=== PATIENT | male | born 1935 | race Caucasian/White ===

== ENCOUNTER 2017-04-08 19:30 | Outpatient (CLI) | payer MEDICARE, BC | END 2017-04-08 19:31 | disposition home or self-care (01) | LOC: SLEEPLAB 19:30 | PROVIDERS: ATTEND Family Medicine | DX: G47.33 Obstructive sleep apnea (adult) (pediatric) (principal); G47.31 Primary central sleep apnea; E11.9 Type 2 diabetes mellitus without complications; I10 Essential (primary) hypertension; K21.9 Gastro-esophageal reflux disease without esophagitis; I25.10 Atherosclerotic heart disease of native coronary artery without angina pectoris | CPT/HCPCS: 95811 ==

== ENCOUNTER 2017-06-07 11:54 | Inpatient (IN) | payer MEDICARE, BC ==
[2017-06-07 13:04] LABS: #Basophils 0.1 thou/uL (0.0-0.2); #Eosinphils 0.2 thou/uL (0.0-0.7); #Lymphocytes 1.9 thou/uL (1.20-3.40); #Monocytes 0.7 thou/uL (0.11-0.59); #Neutrophils 5.8 thou/uL (1.40-6.50); %Basophils 1.2 % (0.0-1.0); %Eosinophils 2.1 % (0.0-10.0); %Monocytes 7.9 % (0.0-10.0); Hematocrit 35.1 % (42.0-52.0); Mean Platelet Volume 6.8 fL (7.4-10.4); Red Blood Cell (RBC) Count 4.02 mill/uL (4.70-6.10); White Blood Cell (WBC) Count 8.6 thou/uL (4.8-10.8)
[2017-06-07 13:10] LABS: PTT 29.9 SEC (22.9-36.1); Prothrombin Time 13.9 SEC (12.0-14.7)
[2017-06-07 13:18] LABS: ALT (SGPT) 19 U/L (8-55); AST (SGOT) 23 U/L (5-34); Alkaline Phosphatase 83 U/L (40-150); Anion Gap 12 mmol/L (10-20); BUN (Urea Nitrogen) 16 mg/dL (8.4-25.7); Bilirubin, Total 0.5 mg/dL (0.2-1.2); CK (CPK) 65 U/L (30-200); Calc. Creatinine Clearance 0 mL/min (70-130); Calcium 9.6 mg/dL (7.8-10.44); Carbon Dioxide 26 mmol/L (23-31); Chloride 99 mmol/L (98-107); Estimated GFR-MDRD 76; Globulin 3.2 g/dL (2.4-3.5)
[2017-06-07 13:20] LABS: Troponin I Less than 0.010 ng/mL (< 0.028)
--- NOTE | 2017-06-07 13:26 | CT ---
NONCONTRAST HEAD CT: History: Altered mental status. Comparison: 02-12-17 Technique: Noncontrast head CT is performed from skull base to skull vertex. FINDINGS: No parenchymal hemorrhage. No extraaxial hematoma. No midline shift. Basilar cisterns are patent. Age appropriate atrophy. Cortical recinos white matter differentiation is preserved. Ventricles and sulci a re patent and symmetric. Stable hypodensity in the left subinsular white matter. Stable atherosclerosis. Calvarium is intact. Adequate aeration of the sinuses and mastoid air cells. IMPRESSION: No acute intracranial process. POS: [facility]
--- NOTE | 2017-06-07 13:38 | RAD ---
EXAM: CHEST 1 VIEW: HISTORY: Altered mental status. COMPARISON: 03/05/17. FINDINGS: Portable upright chest demonstrates a normal cardiac silhouette. Pulmonary vessels and hilum are nor mal. Costophrenic angles are clear. Sternotomy wires are noted. No consolidation or mass. No pneu mothorax or osseous abnormalities. IMPRESSION: No acute cardiopulmonary process. POS: [facility]
--- NOTE | 2017-06-07 13:43 | ULT ---
EXAM: LEFT LOWER EXTREMITY VENOUS ULTRASOUND WITH DOPPLER: COMPARISON: 04/16/16. HISTORY: Left leg swelling. COMPARISON: None. TECHNIQUE: North scale, color flow, Doppler imaging, and spectral waveform analysis of the left lower extremity v enous system. FINDINGS: There is compressibility, presence of flow, and augmentation of the common femoral vein, femoral vein , and popliteal vein. There is flow in the greater saphenous vein, profunda vein, and posterior tibi al vein. IMPRESSION: No evidence of thrombus in the left lower extremity deep venous system. POS: [facility]
[2017-06-07 14:55] LABS: Bilirubin Negative (Negative); Blood, Urine Trace (Negative); Glucose, Urine (Dipstick) Negative (Negative); Ketone, Urine Negative (Negative); Nitrite Negative (Negative); Protein, Urine (Dipstick) Negative (Neg-Trace); Urobilinogen 0.2 mg/dL (0.2-1.0)
[2017-06-07 15:47] LABS: Bacteria/HPF None Seen HPF (None Seen); RBC/HPF 0-3 HPF (0-3); Squamous Epithelial None Seen HPF (0-3); WBC/HPF None Seen HPF (0-3)
[2017-06-07 17:04] VITALS: BMI 27.3
[2017-06-07] MEDS ORDERED: Dextrose 5% in Water 1,000 ML IV PRN (17:53)
[2017-06-07] MEDS ORDERED: Dextrose 50% Abboject 50 ML SYRINGE SLOW IVP PRN (17:53)
[2017-06-07] MEDS ORDERED: Labetalol HCl 100 MG/20 ML VIAL SLOW IVP PRN (17:54)
[2017-06-07] MEDS ORDERED: Acetaminophen 325 MG TAB PO PRN (17:56)
[2017-06-07] MEDS ORDERED: Lorazepam 2 MG/ML VIAL ONE (20:34)
[2017-06-07] MEDS ORDERED: Lorazepam 2 MG/ML VIAL SLOW IVP SCH (20:35)
[2017-06-07] MEDS ORDERED: Lorazepam 2 MG/ML VIAL SLOW IVP PRN (20:57)
[2017-06-07] MEDS ORDERED: levETIRAcetam In NaCl (Iso-Os) 1,000 MG in Premix Bag 1 BAG IVPB SCH ×2 (21:00)
[2017-06-07] MEDS ORDERED: Metoprolol Tartrate 25 MG TAB PO SCH (21:00)
[2017-06-07] MEDS ORDERED: Aspirin 325 mg Enteric Coated Tablet PO SCH (21:00)
--- NOTE | 2017-06-07 21:11 | PDOC.EVN ---
Event Note - Event Note Event Note: Called by nursing for AMS, hypoxia and seizure activity. No known prior seizure disorder. No new meds. Admitted for acute confusion, AMS. Reviewed all hx, labs, rads PE: HR 100, RR 16, T-97.8, O2 sat 100% NRB, BP -pending Gen: somnolent HEENT: PERRLA, EOMI, no icterus CHEST: LCTAB CV: S1, S2 tachycardic ABD: soft, NT, ND, BS + EXT: no c/c/e NEURO: somnolent, post-ictal Gluc: 180's EKG: sinus tachycardia in 110's, no acute changes CT Brain - no acute process A/P: 1. Acute Seizure - etiology unclear, Ativan 2mg IV now then q4h prn, Keppra 1000mg IV q12h first dose now, repeat CT brain since admit, transfer to CCU, consult Neurology service, UDS, Mg++, Lactate, Troponin, PO3, TSH 2. Acute Encephalopathy/Delirium - secondary to #1 3. CAD - chronic, stable 4. Chronic Hyponatremia - stable 5. Code Status - DNR confirmed with family at bedside 6. Transfer to CCU Total critical care time: 35min
--- NOTE | 2017-06-07 21:16 | CT ---
CT HEAD NONCONTRAST 06/07/17 HISTORY: Altered mental status. COMPARISON: Earlier exam on the same date. FINDINGS: There is no evidence of acute intracranial hemorrhage or infarct. Chronic ischemic small vessel disea se is again demonstrated. There is no mass effect or shift of midline structures. Calcifications pres ent within the arterial structures. Visualized paranasal sinuses remain well aerated. IMPRESSION: Chronic type findings are stable. No acute intracranial abnormalities are demonstrated on noncontrast CT head. POS: [facility]
[2017-06-07 21:18] LABS: Magnesium 1.6 mg/dL (1.6-2.6); Phosphorus 3.4 mg/dL (2.3-4.7)
[2017-06-07] MEDS: Latanoprost 0.005% Ophth Soln 2.5 ml Bottle L EYE SCH (23:13)
[2017-06-07] MEDS: Timolol 0.5% Ophth Soln 5 ml Bottle L EYE SCH (23:13)
[2017-06-07] MEDS: Brimonidine Tartrate 0.2% Ophth Soln 5 ml Bottle L EYE SCH (23:26)
[2017-06-07] MEDS: HumaLOG 300 UNITS/3 ML VIAL SC PRN (23:43)
[2017-06-07 23:54] LABS: Amphetamine Not Detected (NotDetected); Methadone Not Detected (NotDetected); Methamphetamine Not Detected (NotDetected)
--- NOTE | 2017-06-08 00:36 | HP ---
DATE OF ADMISSION: 06/07/2017 CHIEF COMPLAINT: Confusion, left ankle swelling. PRIMARY CARE PHYSICIAN: Dr. Mehreen Fernández. ADMITTING PHYSICIAN: Micheal Leonard M.D. HISTORY OF PRESENT ILLNESS: The patient is an 82-year-old gentleman with a history of baseline demen tia. The patient's family called EMS because the patient had a sudden onset of confusion at about 10 :30 this morning. The patient became disoriented and was forgot the identity of his caregiver. The patient has no recollection of this episode, but the family presented and reported that his mental st atus is not at baseline currently. During my interview, he is alert, oriented to person, place, and time. He does have some left ankle swelling, which the family reports is an intermittent problem. REVIEW OF SYSTEMS: The following complete review of systems was negative, unless otherwise mentioned in the HPI or below: CONSTITUTIONAL: Weight loss or gain, sense of well-being, ability to conduct usual activities, exerc ise tolerance. SKIN/BREAST: Rash, itching, changes in hair growth or loss, nail changes, breast lumps, tenderness, swelling, nipple discharge. EYES: Vision, double vision, tearing, blind spots, pain. ENT/MOUTH: Headaches (location, time of onset, duration, precipitating factors), vertigo, lightheade dness, injury. Vision, double vision, tearing, blind spots, pain, nose bleeding, colds, obstruction, discharge, dental difficulties, gingival bleeding, dentures, neck stiffness, pain, tenderness, masses in thyroid or other areas. CARDIOVASCULAR: Precordial pain, substernal distress, palpitations, syncope, dyspnea on exertion, or thopnea, nocturnal paroxysmal dyspnea, edema, cyanosis, hypertension, heart murmurs, varicosities, ph lebitis, claudication. RESPIRATORY: Pain, shortness of breath, wheezing, stridor, cough, hemoptysis, fever or night sweats. GASTROINTESTINAL: Poor appetite, dysphagia, indigestion, abdominal pain, heartburn, eructation, naus ea, vomiting, hematemesis, jaundice, constipation, or diarrhea, abnormal stools (rob-colored, tarry, bloody, greasy, foul smelling), flatulence, hemorrhoids, recent changes in bowel habits. GENITOURINARY: Urgency, frequency, dysuria, nocturia, hematuria, polyuria, oliguria, unusual (or mk nge in) color of urine, stones, hesitancy, change in size of stream, dribbling, acute retention or in continence, libido, potency. MUSCULOSKELETAL: Pain, swelling, redness or heat of muscles or joints, limitation, of motion, muscul ar weakness, atrophy, cramps. NEUROLOGIC/PSYCHIATRIC: Convulsions, paralyses, tremor, incoordination, paresthesias, difficulties w ith memory of speech, sensory or motor disturbances, or muscular coordination (ataxia, tremor), emoti onal problems, anxiety, depression, previous psychiatric care, unusual perceptions, hallucinations. ALLERGY/IMMUNOLOGIC: Skin rash, anemia, bleeding tendency, polydipsia, polyuria, intolerance to heat or cold. PAST MEDICAL HISTORY: Significant for dementia, sleep apnea, glaucoma, pulmonary disease, dyslipidem ia, diabetes type 2, spinal stenosis, BPH. PAST SURGICAL HISTORY: Significant for CABG, cholecystectomy, and tonsillectomy. PSYCHIATRIC HISTORY: Positive for depression and mild dementia. SOCIAL HISTORY: He drinks socially. Denies drug use. No smoking history. FAMILY HISTORY: Reviewed and noncontributory at this time. HOME MEDICATIONS: Include Nexium 40 mg q. day, Lasix 20 mg q. day, tamsulosin 0.4 mg q. day, Tradjen ta 5 mg q. day, Zoloft 50 mg q. day, Zetia 10 mg q. day, lisinopril 20 mg q. day, metoprolol 25 mg b. i.d., metformin 500 mg b.i.d., aspirin. DRUG ALLERGIES: No known drug allergies. PHYSICAL EXAMINATION: VITAL SIGNS: Vital statistics, blood pressure 136/72, pulse 73, respirations 14, temperature 97.7, s atting 98% on room air. GENERAL: He is nontoxic, in no apparent distress. HEENT: Head: Normocephalic and atraumatic. Eyes: PERRL. Extraocular muscles intact. NECK: Trachea midline. No meningeal signs. RESPIRATORY: Breath sounds clear. No wheezing, no rales, no rhonchi. CARDIOVASCULAR: Regular rate and rhythm. ABDOMEN: Nontender, nondistended. EXTREMITIES: No clubbing or cyanosis. There is 1+ edema in the left lower extremity versus trace in the right. NEUROLOGIC: GCS of approximately 15. No focal deficits. Full range of motion of all extremities. LABORATORY DATA AND IMAGES: Head CT is negative for acute process, no intracranial hemorrhage. Dopp ler of the lower extremities are negative for deep vein thrombosis. Chest x-ray, no acute pulmonary disease. CBC shows a white count of 8.6, hemoglobin 12.1, hematocrit 35.1, platelets 211,000. PT 13 .9, INR 1.1. CMP: Sodium 133, potassium 4.4, chloride 99, BUN 16, creatinine 0.95, glucose 138. T 23, ALT 19, CK-MB 2.5, troponin I less than 0.01, albumin 3.8. Urinalysis yellow, clear, trace blo od, negative nitrites, negative leukocytes, no bacteria. ASSESSMENT: 1. Possible transient ischemic attack. 2. Altered mental status secondary to #1. 3. Diabetes type 2. 4. Hypertension. PLAN: The patient will be admitted to stroke unit. Brain CT has been performed. [facility], pending recommendations of Neurology. We will control the patient's blood pressure using hi s home medications. We will start his oral hypoglycemics and place him on insulin sliding scale with Accu-Cheks q.a.c. and at bedtime.
[2017-06-08 05:19] LABS: Band 5 % (5-11); Hematocrit 33.2 % (42.0-52.0); Mean Platelet Volume 7.3 fL (7.4-10.4); Neutrophil 69 % (42-75); Red Blood Cell (RBC) Count 3.66 mill/uL (4.70-6.10); White Blood Cell (WBC) Count 9.2 thou/uL (4.8-10.8)
[2017-06-08 08:17] LABS: #Basophils 0.1 thou/uL (0.0-0.2); #Eosinphils 0.1 thou/uL (0.0-0.7); #Lymphocytes 2.5 thou/uL (1.20-3.40); #Monocytes 1.3 thou/uL (0.11-0.59); #Neutrophils 6.8 thou/uL (1.40-6.50); %Basophils 0.8 % (0.0-1.0); %Eosinophils 1.2 % (0.0-10.0); %Lymphocytes 23.2 % (21.0-51.0); %Monocytes 12.1 % (0.0-10.0); Hematocrit 34.1 % (42.0-52.0); Mean Platelet Volume 6.8 fL (7.4-10.4); Red Blood Cell (RBC) Count 3.76 mill/uL (4.70-6.10); White Blood Cell (WBC) Count 10.8 thou/uL (4.8-10.8)
[2017-06-08] MEDS: levETIRAcetam In NaCl (Iso-Os) 1,000 MG in Premix Bag 1 BAG IVPB SCH ×4 (08:36→20:18)
[2017-06-08] MEDS: Brimonidine Tartrate 0.2% Ophth Soln 5 ml Bottle L EYE SCH ×2 (08:37→20:46)
[2017-06-08] MEDS: Timolol 0.5% Ophth Soln 5 ml Bottle L EYE SCH ×2 (08:39→20:27)
[2017-06-08 08:44] LABS: ALT (SGPT) 15 U/L (8-55); AST (SGOT) 20 U/L (5-34); Alkaline Phosphatase 73 U/L (40-150); Anion Gap 8 mmol/L (10-20); BUN (Urea Nitrogen) 13 mg/dL (8.4-25.7); Bilirubin, Total 0.7 mg/dL (0.2-1.2); Calc. Creatinine Clearance 92 mL/min (70-130); Calcium 9.1 mg/dL (7.8-10.44); Carbon Dioxide 28 mmol/L (23-31); Chloride 99 mmol/L (98-107); Estimated GFR-MDRD Greater than 90; Globulin 2.9 g/dL (2.4-3.5); Protein, Total 6.3 g/dL (5.8-8.1)
[2017-06-08] MEDS ORDERED: Furosemide 20 MG TAB PO SCH (09:00)
[2017-06-08] MEDS ORDERED: Ezetimibe 10 MG TAB PO SCH (09:00)
[2017-06-08] MEDS ORDERED: Lisinopril 20 MG TAB PO SCH (09:00)
[2017-06-08] MEDS ORDERED: Tamsulosin HCl 0.4 MG CAP PO SCH (09:00)
--- NOTE | 2017-06-08 11:13 | CON ---
DATE OF CONSULTATION: 06/08/2017 HISTORY: This is an 82-year-old gentleman who apparently seized yesterday and was transferred to the ICU after he was given Ativan. He is on Keppra 1000 mg twice a day. This morning he is awake, aler t, responsive. His initial admission was brought on yesterday by and confusion. Apparently he is a DNR as per his family's wishes. He has been here numerous times in the hospital over here. In fact, he had a recent sleep study done which showed severe obstructive sleep apnea which was contr olled with BiPAP 05/05. It is unclear who was seeing him for this particular issue. PAST MEDICAL HISTORY: Pertinent for coronary artery disease, BPH, diabetes, reflux, hypertension, dy slipidemia, glaucoma. PAST SURGICAL HISTORY: Tonsils, gallbladder, stenting and bypass. TOBACCO: None. ALCOHOL: None. MEDICATIONS: From home metformin 500 Combigan, Zoloft 50, metoprolol 25 twice a day, lisinopril 20, Zetia 10, aspirin, Flomax 0.4, Lasix 20, Nexium 40. ALLERGIES: None. REVIEW OF SYSTEMS: Unremarkable. PHYSICAL EXAMINATION: VITAL SIGNS: Pulse 76, blood pressure 124/50. Sats 90% on room air. GENERAL: He is awake, alert, responsive, moves all 4 extremities. CHEST: Chest reveals decreased breath sounds without any wheezing. CARDIAC: Normal S1-S2. No gallops. ABDOMEN: Soft. No masses. LABORATORY AND X-RAY FINDINGS: Chest x-ray was normal. CT of his brain x2 negative. White count 10,000, H&H 9 and 34, platelet count 212. Sugar 135. Chemistry profile shows sodium was 133, otherwise unremarkable, negative. IMPRESSION: 1. Confusion. 2. Seizure disorder. 3. Diabetes. 4. Electrolyte imbalance. 5. Coronary disease. 6. Hypertension. PLAN: No further seizures. He can probably transfer out of the ICU. Continue supportive care and P T. Continue home medications. I will follow while in the ICU.
--- NOTE | 2017-06-08 11:59 | PDOC.PN ---
- Subjective Encounter Start Date: 06/08/17 Encounter Start Time: 09:35 Subjective: awake, responds well to verbal questions -: not fully oriented - Objective Resuscitation Status: Resuscitation Status DNR:Do Not Resuscitate MAR Reviewed: Yes Vital Signs & Weight: Vital Signs (12 hours) Temp Pulse Pulse Pulse Resp BP BP 06/08/17 08:57 78 77 115/70 06/08/17 08:39 82 119/68 06/08/17 08:00 97.4 F L 82 14 06/08/17 04:00 98.0 F 06/08/17 01:40 06/08/17 00:00 BP Pulse Ox Pulse Ox Pulse Ox 06/08/17 08:57 127/59 L 99 97 06/08/17 08:39 06/08/17 08:00 98 06/08/17 04:00 06/08/17 01:40 96 06/08/17 00:00 95 Weight Weight 199 lb 1.239 oz Most Recent Monitor Data Heart Rate from ECG 83 NIBP 125/61 NIBP BP-Mean 75 Respiration from ECG 10 SpO2 99 I&O: 06/07/17 06/08/17 06/09/17 06:59 06:59 06:59 Intake Total 100 Output Total 855 Balance -755 Result Diagrams: 06/08/17 08:09 06/08/17 08:09 Additional Labs: Accuchecks 06/08/17 06/08/17 06/07/17 11:09 06:00 23:39 POC Glucose 177 H 135 H 216 H 06/07/17 06/07/17 20:49 19:23 POC Glucose 192 H 182 H Phys Exam - Physical Examination HEENT: PERRLA, sclera anicteric Neck: no JVD, supple Respiratory: no wheezing, no rales Cardiovascular: RRR, no significant murmur Gastrointestinal: soft, non-tender, positive bowel sounds Musculoskeletal: no edema, pulses present Neurological: non-focal, moves all 4 limbs Dx/Plan (1) Seizure Code(s): R56.9 - UNSPECIFIED CONVULSIONS Status: Acute (2) CAD (coronary artery disease) Code(s): I25.10 - ATHSCL HEART DISEASE OF [place] CORONARY ARTERY W/O ANG PCTRS Status: Chronic Qualifiers: Coronary Disease-Associated Artery/Lesion type: [place] artery [place] vs. transplanted heart: [place] heart Associated angina: without angina Qualified Code(s): I25.10 - Atherosclerotic heart disease of [place] coronary artery without angina pectoris (3) DM type 2 (diabetes mellitus, type 2) Status: Chronic Qualifiers: Diabetes mellitus complication status: with unspecified complications Diabetes mellitus motor adjuster insulin use: without half-way use Qualified Code( s): E11.8 - Type 2 diabetes mellitus with unspecified complications (4) Dyslipidemia Code(s): E78.5 - HYPERLIPIDEMIA, UNSPECIFIED Status: Chronic (5) HTN (hypertension) Code(s): I10 - ESSENTIAL (PRIMARY) HYPERTENSION Status: Chronic Qualifiers: Hypertension type: essential hypertension (6) Encephalopathy acute Code(s): G93.40 - ENCEPHALOPATHY, UNSPECIFIED Status: Resolved Comment: - Plan had a episode of seizure last evening -: is on keppra -: await neuro opinion -: home meds -: tx to stroke unit, mobilize as tolerated * . Review of Systems - Medications/Allergies Allergies/Adverse Reactions: Allergies Allergy/AdvReac Type Severity Reaction Status Date / Time No Known Drug Allergies Allergy Verified 06/07/17 17:22 Medications: Current Medications Aspirin (Ecotrin) 325 mg PO DAILY [facility] Brimonidine Tartrate (Alphagan 0.2% Oph Soln) 1 drop L EYE BID [facility] Last Admin: 06/08/17 08:37 Dose: 1 drop Dextrose/Water (Dextrose 50%) 25 gm SLOW IVP PRN PRN PRN Reason: Hypoglycemia Glucagon (Glucagon) 1 mg IM PRN PRN PRN Reason: Hypoglycemia Dextrose/Water (D5w) 1,000 mls @ 0 mls/hr IV .Q0M PRN; As Directed PRN Reason: Hypoglycemia Levetiracetam 1,000 mg/ Device 100 mls @ 200 mls/hr IVPB BID [facility] Last Admin: 06/08/17 08:36 Dose: 100 mls Sodium Chloride (Normal Saline 0.9%) 1,000 mls @ 50 mls/hr IV .Q20H [facility] Insulin Human Lispro (Humalog) 0 units SC .MILD SLIDING SCALE PRN PRN Reason: Mild Correctional Scale Last Admin: 06/07/17 23:43 Dose: 4 units Labetalol HCl (Normodyne) 20 mg SLOW IVP Q1H PRN PRN Reason: BP > 220/110 Latanoprost (Xalatan 0.005% Ophth Soln) 1 drop L EYE HS [facility] Last Admin: 06/07/17 23:13 Dose: 1 drop Lorazepam (Ativan) 2 mg SLOW IVP Q4H PRN PRN Reason: Seizures Metformin HCl (Glucophage) 500 mg PO BID [facility] Metoprolol Tartrate (Lopressor) 25 mg PO BID [facility] Pantoprazole Sodium (Protonix) 40 mg PO DAILY [facility] Potassium Bicarb/Potassium Chloride (K-Lyte Cl) 25 meq PO QAM-WM [facility] Sodium Chloride (Flush - Normal Saline) 10 ml IVF Q12HR [facility] Last Admin: 06/08/17 08:40 Dose: 10 ml Sodium Chloride (Flush - Normal Saline) 10 ml IVF PRN PRN PRN Reason: Saline Flush Timolol Maleate (Timoptic 0.5% Oph Soln) 1 drop L EYE BID [facility] Last Admin: 06/08/17 08:39 Dose: 1 drop
--- NOTE | 2017-06-08 12:22 | ULT ---
CAROTID DUPLEX SONOGRAM: HISTORY: Vascular disease. CVA. FINDINGS: RIGHT: Mild plaque is present. Color and spectral Doppler evaluation, peak systolic velocity is 67 cm/s, an d IC to CC ratio of 0.6 suggests no hemodynamically significant stenosis within the extracranial righ t ICA. Antegrade flow is present within the vertebral artery. LEFT: Scattered plaque is present. Color and spectral Doppler evaluation, peak systolic velocity 101 cm/s, and IC to CC ratio 0.9 suggests no hemodynamically significant stenosis within the extracranial left ICA. Antegrade flow is present within the vertebral artery. IMPRESSION: Atherosclerosis. There is no sonographic evidence of significant extracranial internal carotid arter y stenosis. POS: [facility]
[2017-06-08] MEDS: HumaLOG 300 UNITS/3 ML VIAL SC PRN (12:38)
[2017-06-08] MEDS: Sodium Chloride 0.9% 1,000 ML IV SCH (12:39)
[2017-06-08] MEDS ORDERED: Pot Chloride/Pot Bicarb/Cit Ac 25 mEq Effervescent Tablet PO SCH (12:45)
[2017-06-08] MEDS: Latanoprost 0.005% Ophth Soln 2.5 ml Bottle L EYE SCH (20:15)
[2017-06-08] MEDS: Metoprolol Tartrate 25 MG TAB PO SCH (20:16)
[2017-06-08] MEDS: metFORMIN 500 MG TAB PO SCH (20:16)
[2017-06-09] MEDS: Pot Chloride/Pot Bicarb/Cit Ac 25 mEq Effervescent Tablet PO SCH (08:11)
[2017-06-09] MEDS: Sodium Chloride 0.9% 1,000 ML IV SCH (08:11)
[2017-06-09] MEDS: Aspirin 325 mg Enteric Coated Tablet PO SCH (08:13)
[2017-06-09] MEDS: Metoprolol Tartrate 25 MG TAB PO SCH ×2 (08:14→20:51)
[2017-06-09] MEDS: Brimonidine Tartrate 0.2% Ophth Soln 5 ml Bottle L EYE SCH ×2 (08:14→20:50)
[2017-06-09] MEDS: metFORMIN 500 MG TAB PO SCH ×2 (08:14→20:51)
[2017-06-09] MEDS: Timolol 0.5% Ophth Soln 5 ml Bottle L EYE SCH ×2 (08:15→20:50)
[2017-06-09] MEDS: levETIRAcetam In NaCl (Iso-Os) 1,000 MG in Premix Bag 1 BAG IVPB SCH ×2 (08:24)
--- NOTE | 2017-06-09 10:03 | EKG ---
Test Reason : STAT Blood Pressure : / mmHG Vent. Rate : 112 BPM Atrial Rate : 112 BPM P-R Int : 192 ms QRS Dur : 092 ms QT Int : 326 ms P-R-T Axes : 058 017 047 degrees QTc Int : 444 ms Sinus tachycardia Otherwise normal ECG When compared with ECG of 05-MAR-2017 10:39, No significant change was found Confirmed by LAUREL MCKEON, DR. Butler ([id number]) on 06/09/2017 10:02:31 AM Referred By: PAULA MEJIAS Confirmed By:DR. Luke BARRAGAN MD
--- NOTE | 2017-06-09 11:42 | PRG ---
DATE OF SERVICE: 06/09/2017 SUBJECTIVE: This morning, the patient is awake, alert, responsive, no further seizure activity. He is eating breakfast without any issues. OBJECTIVE: VITAL SIGNS: Blood pressure 118/66, sats are 97%, respirations 18. CHEST: Chest reveals decreased breath sounds with no wheezing. CARDIAC: Normal S1, S2. No gallops. ABDOMEN: Soft, no masses. LABORATORY DATA: White count 10,000, H&H is 11 and 33, platelet count is normal. Sodium 132, potass ium is low. IMPRESSION: 1. Status post seizure. 2. Syncope and encephalopathy, improved. PLAN: He can be transferred out of the ICU. At this stage, PT and supportive care. We will follow while in the ICU.
[2017-06-09] MEDS: Latanoprost 0.005% Ophth Soln 2.5 ml Bottle L EYE SCH (20:50)
[2017-06-09] MEDS: levETIRAcetam 500 MG TAB PO SCH (20:51)
--- NOTE | 2017-06-09 22:49 | CON ---
DATE OF CONSULTATION: 06/09/2017 REASON FOR CONSULTATION: Confusion. REFERRING PROVIDER: Dr. Micheal Leonard. HISTORY OF PRESENT ILLNESS: Mr. Espinoza is an 82-year-old male who has been concerned for evaluation of confusion. History is obtained from patient's 2 daughters were present at bedside. Catrachita jim reports that patient is at baseline, able to know the names of family members, able to carry on his activities of daily living, drive without any difficulty and able to perform his functions wit hout any problems. She reports that in January of this year, he had a sudden onset of confusion for whi ch he was brought to the [facility]. It was felt that the symptoms were secondary to metabo lic derangement. He was treated with IV fluids and then discharged to rehab. After discharge from [facility] rehab, he was again had an episode of confusion for which he had gone to the outside emergency [place] where he was noted to be dehydrated and was given IV fluids and discharged home on the same day. S he states that on day before yesterday, patient was at home, the griddle attendant had came to see him and at that time, he was acting in his normal self. He had gone to the bathroom and after when he came out of the bathroom, griddle attendant noted that he was extremely confused and looked anxious. He asked where his bedroom is located. He did not know how to get from one bedroom to another bedroom. This concer imani her and that she called the daughter who immediately notified the EMS. He was then brought to [facility]. On arrival here, he was noted to have mild hyponatremia and hypokalemia , it was felt that his symptoms could be metabolic or TIA. He was admitted for further workup. On , patient was noted to have a generalized tonic-clonic convulsion. This was witnessed by ronald bruno who was present at his bedside during that event. He has no prior history of seizure disorder. He has no prior history of head trauma or TWIST TESTER infection. He was transferred to ICU and was started on IV Keppra. He has not had any more episode of confusion, although according to daughter, he is s till not completely back to his baseline. He currently denies any headache, chest pain, palpitation, numbness, tingling, or weakness. PAST MEDICAL HISTORY: Significant for hypertension, diabetes, dyslipidemia, obstructive sleep apnea, dementia, glaucoma, BPH, and spinal stenosis. PAST SURGICAL HISTORY: Significant for CABG, cholecystectomy, and tonsillectomy. SOCIAL HISTORY: He drinks alcohol on social occasions. He denies drug use. He denies smoking. He is retired and lives with his family member. CURRENT MEDICATIONS: Please review MAR. ALLERGIES: No known drug allergies. REVIEW OF SYSTEMS: As mentioned above in HPI, otherwise negative. PHYSICAL EXAMINATION: VITAL SIGNS: Blood pressure of 137/66, pulse of 59, temperature of 98.2, respirations of 16, O2 satu ration 96% on room air. GENERAL: Well-developed, well-nourished male in no apparent distress. RESPIRATORY: Clear to auscultation bilaterally. CARDIOVASCULAR: Regular rate and rhythm. NEUROLOGIC: Mental status: Patient is awake, alert, oriented x3. Speech and language: Fluent spee ch. Cranial nerves: Pupils are 3 mm and reactive. Visual francisco are intact. Extraocular muscles a re intact. No nystagmus is noted. Face is symmetric. Tongue and uvula are midline. Motor exam caleb wed normal tone and bulk with a 5/5 strength in both upper and lower extremities. Sensory: Sensatio n is intact and symmetric. Deep tendon reflexes 2+ reflexes in both upper and lower extremities. Ba binski: Plantar responses flexion bilaterally. Coordination intact to [id number] tapping bi laterally. LABORATORY DATA: Reviewed, which included CBC, coag panel, CMP, urinalysis, and urine drug screen, w hich is significant for hemoglobin 11.3, hematocrit 34.1. Sodium 132, potassium of 3.3. BNP of 344. 7. Urine drug screen was positive for benzodiazepine use. IMAGING STUDIES: CT head without contrast was reviewed which showed no acute intracranial abnormalit y. IMPRESSION: 1. Generalized tonic-clonic seizure. 2. Confusion. 3. Observe his sleep apnea. Mr. Espinoza is an 82-year-old male who presented with the episode of confusion and loss of memory. Based on the description of symptoms, this could be transient ischemic attack, this could a lso be secondary to seizure. At this time, I will recommend reducing his Keppra dose from 1000 mg b. i.d. to 500 mg b.i.d. I will recommend obtaining MRI brain and EEG, which can be done as an outpatie nt. Patient is okay to be discharged to home, if he remains stable overnight and he will follow up w ith my clinic in 4 to 6 weeks.
[2017-06-10] MEDS: Sodium Chloride 0.9% 1,000 ML IV SCH (04:43)
[2017-06-10 06:22] LABS: #Basophils 0.1 thou/uL (0.0-0.2); #Eosinphils 0.2 thou/uL (0.0-0.7); #Lymphocytes 1.8 thou/uL (1.20-3.40); #Neutrophils 5.6 thou/uL (1.40-6.50); %Basophils 0.8 % (0.0-1.0); %Eosinophils 2.9 % (0.0-10.0); %Lymphocytes 20.7 % (21.0-51.0); %Monocytes 11.3 % (0.0-10.0); Hematocrit 35.4 % (42.0-52.0); Mean Platelet Volume 7.5 fL (7.4-10.4); Red Blood Cell (RBC) Count 3.88 mill/uL (4.70-6.10); White Blood Cell (WBC) Count 8.7 thou/uL (4.8-10.8)
[2017-06-10 06:29] LABS: Anion Gap 11 mmol/L (10-20); BUN (Urea Nitrogen) 12 mg/dL (8.4-25.7); Calc. Creatinine Clearance 85 mL/min (70-130); Calcium 9.2 mg/dL (7.8-10.44); Carbon Dioxide 26 mmol/L (23-31); Chloride 101 mmol/L (98-107); Estimated GFR-MDRD 90
--- NOTE | 2017-06-10 09:13 | PDOC.PN ---
- Subjective Encounter Start Date: 06/10/17 Encounter Start Time: 07:00 Subjective: no further seizures, feels good -: responds well to verbal stimuli - Objective Resuscitation Status: Resuscitation Status DNR:Do Not Resuscitate MAR Reviewed: Yes Vital Signs & Weight: Vital Signs (12 hours) Temp Pulse Resp BP Pulse Ox 06/10/17 08:00 97.7 F 61 18 137/71 96 06/10/17 04:30 97 F L 62 18 155/81 H 96 06/10/17 00:28 97.9 F 70 20 157/85 H 95 Weight Weight 195 lb 1.6 oz Most Recent Monitor Data Heart Rate from ECG 59 NIBP 124/84 NIBP BP-Mean 101 Respiration from ECG 18 SpO2 97 I&O: 06/09/17 06/10/17 06/11/17 06:59 06:59 06:59 Intake Total 1310 1680 Output Total 1445 450 Balance -135 1230 Result Diagrams: 06/10/17 05:55 06/10/17 05:55 Additional Labs: Accuchecks 06/10/17 06/09/17 06/09/17 06:13 20:44 16:59 POC Glucose 127 H 173 H 121 H 06/09/17 11:27 POC Glucose 112 H Phys Exam - Physical Examination HEENT: PERRLA, moist MMs Neck: no JVD, supple Respiratory: no wheezing, no rales Cardiovascular: RRR, no significant murmur Gastrointestinal: soft, non-tender, positive bowel sounds Musculoskeletal: no edema, pulses present Neurological: non-focal, moves all 4 limbs Dx/Plan (1) Seizure Code(s): R56.9 - UNSPECIFIED CONVULSIONS Status: Acute (2) CAD (coronary artery disease) Code(s): I25.10 - ATHSCL HEART DISEASE OF [place] CORONARY ARTERY W/O ANG PCTRS Status: Chronic Qualifiers: Coronary Disease-Associated Artery/Lesion type: [place] artery [place] vs. transplanted heart: [place] heart Associated angina: without angina Qualified Code(s): I25.10 - Atherosclerotic heart disease of [place] coronary artery without angina pectoris (3) DM type 2 (diabetes mellitus, type 2) Status: Chronic Qualifiers: Diabetes mellitus complication status: with unspecified complications Diabetes mellitus long-term insulin use: without long-term use Qualified Code( s): E11.8 - Type 2 diabetes mellitus with unspecified complications (4) Dyslipidemia Code(s): E78.5 - HYPERLIPIDEMIA, UNSPECIFIED Status: Chronic (5) HTN (hypertension) Code(s): I10 - ESSENTIAL (PRIMARY) HYPERTENSION Status: Chronic Qualifiers: Hypertension type: essential hypertension (6) Encephalopathy acute Code(s): G93.40 - ENCEPHALOPATHY, UNSPECIFIED Status: Resolved Comment: - Plan hemo/neuro stable -: continue keppra at 500mg bid -: dc pt home -: to f/u with for MRI/EEG as outpt -: d/w daughter at bedside * .
[2017-06-10] MEDS: Aspirin 325 mg Enteric Coated Tablet PO SCH (09:21)
[2017-06-10] MEDS: Metoprolol Tartrate 25 MG TAB PO SCH (09:22)
[2017-06-10] MEDS: levETIRAcetam 500 MG TAB PO SCH (09:22)
[2017-06-10] MEDS: Pot Chloride/Pot Bicarb/Cit Ac 25 mEq Effervescent Tablet PO SCH (09:22)
[2017-06-10] MEDS: metFORMIN 500 MG TAB PO SCH (09:22)
[2017-06-10] MEDS: Timolol 0.5% Ophth Soln 5 ml Bottle L EYE SCH (09:23)
[2017-06-10] MEDS: Brimonidine Tartrate 0.2% Ophth Soln 5 ml Bottle L EYE SCH (09:24)
[2017-06-10 11:53] VITALS: BP 144/81; TEMP 98
--- NOTE | 2017-06-10 15:16 | DIS ---
DATE OF ADMISSION: 06/07/2017 DATE OF DISCHARGE: 06/10/2017 DISCHARGE DISPOSITION: To home. PRIMARY DISCHARGE DIAGNOSIS: Acute encephalopathy with one episode of grand mal seizure. SECONDARY DISCHARGE DIAGNOSES: Coronary artery disease, diabetes mellitus type 2, dyslipidemia, hypertension, and obstructive sleep apnea. PROCEDURES DONE DURING HOSPITALIZATION: The patient has had echo with 2D Doppler done which showed EF of 50%-55%, normal RV size and function. CT brain done showed no acute intracranial process. Left lower extremity ultrasound venous Doppler done showed no evidence of DVT. Carotid Doppler done on showed no hemodynamically significant stenosis. Urine culture, no growth. Hemoglobin and hematocrit 11 and 35, platelet count 208 with white count of 8.7 , MCV is 91, BUN is 12, and creatinine 0.8. Discharge sodium is 134. One set of cardiac enzymes were negative. Urine drug screen was positive for benzodiazepine, likely iatrogenic. DISCHARGE MEDICATIONS: Keppra 500 mg p.o. twice daily, linagliptin 5 mg p.o. daily, lisinopril 20 mg p.o. daily, metformin 500 mg p.o. twice daily, Lopressor 25 mg p.o. twice daily, sertraline 50 mg p.o. daily, Flomax 0.4 mg p.o. daily, Lasix 20 mg p.o. q.a.m., Zetia 10 mg p.o. daily, Nexium 40 mg p.o. at bedtime, brimonidine/timolol eyedrops and Lumigan eyedrops as before, and aspirin 325 mg p.o. at bedtime. ALLERGIES: No known drug allergies. INPATIENT CONSULTS: Dr. Mishra for Pulmonology. Dr. Edwige Eng for Neurology. BRIEF COURSE DURING HOSPITALIZATION: Patient initially got admitted on after family called EMS for confusion at home. He was disoriented and forgot the identity of his caregiver apparently. He was initially placed on stroke unit and later upgraded to ICU when he had an episode of grand mal seizures on the stroke unit. The patient was loaded up on Keppra as this was a witnessed grand mal seizure. He has had consultation with Dr. Albertina Gibbons for Neurology. The patient has known history of obstructive sleep apnea and not sure if he is compliant with the CPAP machine. He has had 2 CT brains which have not revealed any acute intracranial abnormality. The patient likely will need outpatient MRI with further tests for his new onset seizure. He is at his baseline cognitive function and is ambulating on the stroke unit prior to discharge. The patient needs to follow up with Dr. Eng in 2 weeks. He is comfortable on 500 mg of Keppra twice daily with no overt sedation seen. Please see a face to face documentation on [facility] for the day of discharge. MTDD
== END 2017-06-10 12:16 | disposition home health service (06) | DRG 100 ==
LOC: SCSER 11:54 → 2SE 17:00 → OBSVTOIN 17:00 → CCU 21:32 → 2SE 06-09 12:20
PROVIDERS: ADMIT Internal Medicine Addiction Medicine; ATTEND Internal Medicine Addiction Medicine
DX: G40.409 Other generalized epilepsy and epileptic syndromes, not intractable, without status epilepticus (principal); G93.49 Other encephalopathy; E87.8 Other disorders of electrolyte and fluid balance, not elsewhere classified; E87.1 Hypo-osmolality and hyponatremia; E11.9 Type 2 diabetes mellitus without complications; Z95.1 Presence of aortocoronary bypass graft; I10 Essential (primary) hypertension; Z90.49 Acquired absence of other specified parts of digestive tract; I25.10 Atherosclerotic heart disease of native coronary artery without angina pectoris; R55 Syncope and collapse; E78.5 Hyperlipidemia, unspecified; G47.33 Obstructive sleep apnea (adult) (pediatric); E87.6 Hypokalemia; Z66 Do not resuscitate; M25.472 Effusion, left ankle
CPT/HCPCS: 36415; 36416; 70450; 71010; 80048; 80053; 80306; 81003; 81015; 82550; 82553; 83605; 83735; 83880; 84100; 84443; 84484; 85007; 85025; 85027; 85610; 85730; 87086; 93005; 93010; 93306; 93880; 94760; A4216; G8978-GP-CK; G8979-GP-CJ; G8987-GO-CJ; G8988-GO-CI; G8996-GN-CI; G8997-GN-CI; J1953; J2060

== ENCOUNTER 2017-06-24 12:18 | Emergency (ER) | payer MEDICARE, BC ==
[2017-06-24 13:28] LABS: #Basophils 0.1 thou/uL (0.0-0.2); #Eosinphils 0.1 thou/uL (0.0-0.7); #Lymphocytes 1.8 thou/uL (1.20-3.40); #Monocytes 0.5 thou/uL (0.11-0.59); #Neutrophils 6.7 thou/uL (1.40-6.50); %Basophils 1.5 % (0.0-1.0); %Eosinophils 1.1 % (0.0-10.0); %Monocytes 5.5 % (0.0-10.0); Hematocrit 34.9 % (42.0-52.0); Mean Platelet Volume 7.1 fL (7.4-10.4); Red Blood Cell (RBC) Count 4.04 mill/uL (4.70-6.10); White Blood Cell (WBC) Count 9.2 thou/uL (4.8-10.8)
[2017-06-24 13:39] LABS: ALT (SGPT) 14 U/L (8-55); AST (SGOT) 17 U/L (5-34); Alkaline Phosphatase 90 U/L (40-150); Anion Gap 15 mmol/L (10-20); BUN (Urea Nitrogen) 17 mg/dL (8.4-25.7); Bilirubin, Total 0.4 mg/dL (0.2-1.2); Calc. Creatinine Clearance 0 mL/min (70-130); Calcium 9.6 mg/dL (7.8-10.44); Carbon Dioxide 26 mmol/L (23-31); Chloride 101 mmol/L (98-107); Estimated GFR-MDRD 82; Globulin 3.5 g/dL (2.4-3.5); Protein, Total 7.3 g/dL (5.8-8.1)
[2017-06-24 13:40] LABS: Troponin I Less than 0.010 ng/mL (< 0.028)
--- NOTE | 2017-06-24 15:19 | RAD ---
PORTABLE CHEST: History: Cough. Comparison: 06-07-17 FINDINGS: Heart size is within normal limits for portable technique. Post op sternotomy changes are seen. The l ungs are clear of infiltrates. No signs of failure. No infiltrative process. IMPRESSION: No active intrathoracic disease. POS: [facility]
[2017-06-24 15:32] LABS: Bilirubin Negative (Negative); Blood, Urine Trace (Negative); Glucose, Urine (Dipstick) Negative (Negative); Ketone, Urine Negative (Negative); Nitrite Negative (Negative); Protein, Urine (Dipstick) Negative (Neg-Trace); Urobilinogen 0.2 mg/dL (0.2-1.0)
[2017-06-24 15:37] LABS: Bacteria/HPF 2+ HPF (None Seen); Squamous Epithelial 0-3 HPF (0-3); WBC/HPF 21-50 HPF (0-3)
[2017-06-24 15:38] LABS: Hyaline Casts/LPF 0-3 HYALINE CAST LPF (0-3 Hyaline)
[2017-06-24] MEDS ORDERED: Cephalexin 500 MG CAP ONE (16:07)
--- NOTE | 2017-07-14 11:39 | EKG ---
Test Reason : Blood Pressure : / mmHG Vent. Rate : 075 BPM Atrial Rate : 075 BPM P-R Int : 166 ms QRS Dur : 082 ms QT Int : 362 ms P-R-T Axes : 085 019 056 degrees QTc Int : 404 ms Age and gender specific ECG analysis Normal sinus rhythm Normal ECG Confirmed by ILAN VALLEJO D.O. ([id number]), assignment editor TAYLOR VERA ([id number]) on 07/14/2017 11:39:12 AM Referred By: Confirmed By:ILAN VALLEJO D.O.
== END 2017-06-24 16:10 | disposition home or self-care (01) ==
LOC: SCSER 12:18
DX: N39.0 Urinary tract infection, site not specified (principal); K21.9 Gastro-esophageal reflux disease without esophagitis; E78.5 Hyperlipidemia, unspecified; I10 Essential (primary) hypertension; G47.30 Sleep apnea, unspecified; F32.9 Major depressive disorder, single episode, unspecified; N40.0 Benign prostatic hyperplasia without lower urinary tract symptoms; E11.9 Type 2 diabetes mellitus without complications; Z79.899 Other long term (current) drug therapy; Z79.84 Long term (current) use of oral hypoglycemic drugs
CPT/HCPCS: 71010; 80053; 81003; 81015; 82553; 84484; 85025; 87077; 87086; 87186; 93005

== ENCOUNTER 2017-08-06 08:45 | Outpatient (CLI) | payer MEDICARE, BC ==
--- NOTE | 2017-08-06 10:52 | MRI ---
BRAIN MRI NONCONTRAST: HISTORY: Confusion, 82-year-old male. COMPARISON: 02/16/17. FINDINGS: There is generalized mild parenchymal volume loss. No acute territorial infarction or mass effect. No midline shift. There is mild chronic microvascular ischemic disease of the cerebral white matter. There is asymmetric increased FLAIR and T2 signal of the left temporal lobe, medially, underlying the left temporal horn. There is no obvious restriction associated with this finding. No hemorrhagic s usceptibility is seen. Skull base flow voids are grossly preserved. [place] intraarticular lenses ar e absent. There is bilateral mastoid fluid. IMPRESSION: 1. No acute territorial infarction or mass effect. 2. Nonspecific focus of signal alteration of the medial left temporal lobe. This was not present on prior exam. This finding could represent artifactual signal alteration, although underlying patholo gic signal alteration related to component of cerebritis, hippocampal sclerosis, or tumor cannot be e xcluded on the basis of this exam. Recommend followup with pre- and postcontrast exam to exclude enh ancement as well as to evaluate for persistence by precontrast imaging, in the event that this findin g would represent artifact. POS: [facility]
== END 2017-08-06 08:46 | disposition home or self-care (01) ==
LOC: SCSMRI 08:45
PROVIDERS: ATTEND Psychiatry & Neurology Neurology
DX: R41.0 Disorientation, unspecified (principal)
CPT/HCPCS: 70551

== ENCOUNTER 2017-08-13 12:25 | Outpatient (CLI) | payer MEDICARE, BC | END 2017-08-13 12:26 | disposition home or self-care (01) | LOC: EEG 12:25 | PROVIDERS: ATTEND Psychiatry & Neurology Neurology | DX: R41.0 Disorientation, unspecified (principal) | CPT/HCPCS: 95816 ==

== ENCOUNTER 2017-08-17 10:03 | Outpatient (CLI) | payer MEDICARE, BC ==
[2017-08-17] MEDS ORDERED: Gadobenate Dimeglumine 529 MG/1 ML (20ML VIAL) ONE (14:22)
== END 2017-08-17 10:04 | disposition home or self-care (01) ==
LOC: BICMRI 10:03
PROVIDERS: ATTEND Psychiatry & Neurology Neurology
DX: G40.909 Epilepsy, unspecified, not intractable, without status epilepticus (principal); G93.89 Other specified disorders of brain
CPT/HCPCS: 70553; A9579

== ENCOUNTER 2017-09-01 10:54 | Emergency (ER) | payer MEDICARE, BC ==
[2017-09-01 11:43] LABS: #Basophils 0.1 thou/uL (0.0-0.2); #Lymphocytes 2.2 thou/uL (1.20-3.40); #Monocytes 0.5 thou/uL (0.11-0.59); #Neutrophils 6.1 thou/uL (1.40-6.50); %Basophils 1.1 % (0.0-1.0); %Eosinophils 0.2 % (0.0-10.0); %Lymphocytes 24.7 % (21.0-51.0); %Monocytes 6.1 % (0.0-10.0); Hemoglobin 11.8 g/dL (14.0-18.0); Mean Corpuscular HGB CONC 33.1 g/dL (32.0-36.0); Mean Corpuscular Hemoglobin 27.1 pg (27.0-31.0); Mean Corpuscular Volume 81.9 fl (80.0-94.0); Platelet Count 199 thou/uL (130-400); RBC Distribution Width 11.8 % (11.5-14.5); Red Blood Cell (RBC) Count 4.36 mill/uL (4.70-6.10); White Blood Cell (WBC) Count 8.9 thou/uL (4.8-10.8)
[2017-09-01 11:52] LABS: Bilirubin Negative (Negative); Blood, Urine Negative (Negative); Clarity Clear (Clear); Glucose, Urine (Dipstick) Negative (Negative); Leukocyte Negative (Negative); Nitrite Negative (Negative); Protein, Urine (Dipstick) 30 mg/dL (Neg-Trace); Urobilinogen 0.2 mg/dL (0.2-1.0); pH, Urine 5.5 (5.0-9.0)
[2017-09-01 11:55] LABS: Anion Gap 12 mmol/L (10-20); BUN (Urea Nitrogen) 19 mg/dL (8.4-25.7); Calc. Creatinine Clearance 0 mL/min (70-130); Calcium 9.4 mg/dL (7.8-10.44); Carbon Dioxide 27 mmol/L (23-31); Chloride 98 mmol/L (98-107); Estimated GFR-MDRD 62; Glucose 194 mg/dL (83-110); Potassium 3.8 mmol/L (3.5-5.1); Sodium 133 mmol/L (136-145)
[2017-09-01 11:57] LABS: Bacteria/HPF Rare-Few HPF (None Seen); RBC/HPF None Seen HPF (0-3); Squamous Epithelial 0-3 HPF (0-3); WBC/HPF None Seen HPF (0-3)
--- NOTE | 2017-09-01 13:22 | RAD ---
PORTABLE AP CHEST: Date: 09/01/17 HISTORY: Altered mental status. COMPARISON: 06/24/17. FINDINGS: Postsurgical changes related to CABG are again noted. Cardiac silhouette and pulmonary vasculature ar e within normal limits for the portable technique of the study. The lungs are clear. There has been n o interval change when compared to the prior exam. IMPRESSION: No acute cardiopulmonary process. POS: [facility]
--- NOTE | 2017-09-01 15:08 | CT ---
NONCONTRAST CT HEAD: Date: 09/01/17 HISTORY: Altered mental status. COMPARISON: 06/07/17. FINDINGS: There is a small low density focus seen in the right thalamus, also likely present on prior exam, alt torres less well delineated. This is probably most reflective of a remote lacunar infarction. There is no evidence of an acute cortical infarction, hemorrhage, mass effect, or midline shift. There is mil d diminished attenuation of the periventricular white matter suggesting chronic small vessel ischemic changes. There is cerebral volume loss. The ventricular system is normal in size, shape, and positio n for the degree of sulcal atrophy. There is suggestion of a subtle low attenuation focus in the righ t lentiform nucleus, but this may be related to volume attenuation, although a lacunar infarction of indeterminate age is not excluded. There is no other interval change from the prior exam. IMPRESSION: 1. Subtle low density focus in the right lentiform nucleus which may represent a lacunar infarction of indeterminate age; however, this could potentially represent volume averaging and possibly be valeri factual. A remote lacunar infarction is seen in the right thalamus. 2. No acute cortical infarction is visualized. However, MRI would be a more sensitivity study of cho ice for evaluation of a more acute infarction. 3. Cerebral volume loss. POS: [facility]
== END 2017-09-01 13:56 | disposition home or self-care (01) ==
LOC: SCSER 10:54
DX: B34.9 Viral infection, unspecified (principal); G47.30 Sleep apnea, unspecified; K21.9 Gastro-esophageal reflux disease without esophagitis; E78.5 Hyperlipidemia, unspecified; I10 Essential (primary) hypertension; E11.9 Type 2 diabetes mellitus without complications; F32.9 Major depressive disorder, single episode, unspecified; F03.90 Unspecified dementia, unspecified severity, without behavioral disturbance, psychotic disturbance, mood disturbance, and anxiety; Z79.84 Long term (current) use of oral hypoglycemic drugs; Z79.899 Other long term (current) drug therapy
CPT/HCPCS: 70450; 71045; 80048; 81003; 81015; 85025; 87804

== ENCOUNTER 2018-10-28 06:27 | Emergency (ER) | payer MEDICARE, BC ==
[2018-10-28] MEDS ORDERED: Haloperidol Lactate 5 MG/ML VIAL ONE (06:37)
[2018-10-28 06:47] LABS: #Lymphocytes 1.2 thou/uL (1.20-3.40); #Monocytes 0.7 thou/uL (0.11-0.59); #Neutrophils 13.9 thou/uL (1.40-6.50); %Basophils 0.1 % (0.0-1.0); %Eosinophils 0.2 % (0.0-10.0); %Lymphocytes 7.3 % (21.0-51.0); %Monocytes 4.2 % (0.0-10.0); %Neutrophils 88.2 % (42.0-75.0); Hemoglobin 12.8 g/dL (14.0-18.0); Mean Corpuscular HGB CONC 33.2 g/dL (32.0-36.0); Mean Corpuscular Hemoglobin 26.5 pg (27.0-31.0); Mean Corpuscular Volume 79.6 fL (78.0-98.0); Mean Platelet Volume 8.2 fL (7.4-10.4); Platelet Count 268 thou/uL (130-400); RBC Distribution Width 13.6 % (11.5-14.5); Red Blood Cell (RBC) Count 4.83 mill/uL (4.70-6.10); White Blood Cell (WBC) Count 15.8 thou/uL (4.8-10.8)
[2018-10-28 07:47] LABS: ALT (SGPT) 15 U/L (8-55); AST (SGOT) 21 U/L (5-34); Acetaminophen Less than 6.0 mcg/mL (10.0-30.0); Alcohol Less than 10 mg/dL (Less than 10); Alkaline Phosphatase 104 U/L (40-150); Anion Gap 13 mmol/L (10-20); BUN (Urea Nitrogen) 17 mg/dL (8.4-25.7); Bilirubin, Total 0.3 mg/dL (0.2-1.2); CK (CPK) 90 U/L (30-200); Calc. Creatinine Clearance 0 mL/min (70-130); Calcium 9.5 mg/dL (7.8-10.44); Carbon Dioxide 27 mmol/L (23-31); Chloride 93 mmol/L (98-107); Estimated GFR-MDRD 62; Globulin 3.4 g/dL (2.4-3.5); Glucose 258 mg/dL (83-110); Protein, Total 7.4 g/dL (5.8-8.1); Salicylate Less than 8.0 mg/dL (15.0-30.0); Sodium 129 mmol/L (136-145)
--- NOTE | 2018-10-28 08:45 | CT ---
CT OF THE BRAIN WIHTOUT CONTRAST: Date: 10/28/18 INDICATION: Left I stroke protocol; possible CVA; altered mental status with unwitnessed fall to ground from bed. COMPARISON: CT brain dated 09/01/17. FINDINGS: No acute infarct, hemorrhage, or hydrocephalus is present. Septum pellucidum and third ventricle are midline. The generalized cerebral and cerebellar atrophy is stable. Mastoid air cells are clear. Para nasal sinuses are clear. The skull is intact. IMPRESSION: No acute intracranial abnormality. Findings called to Dr. Zuleta at 0657 hours on 10/28/18. CODE CR. POS: [facility]
--- NOTE | 2018-10-28 08:47 | CT ---
CT CERVICAL SPINE WITHOUT CONTRAST: Date: 10/28/18 INDICATION: Unwitnessed fall from bed at intermediate with altered mental status. COMPARISON: CT cervical spine dated 12/19/16. FINDINGS: There is multilevel spondylosis of the cervical spine. Spinal alignment is within normal limits. Osse ous central canal is relatively well preserved. Craniocervical junction is normal appearing. The lung apices are clear. No acute fracture or subluxation is evident. IMPRESSION: No acute osseous abnormality. POS: [facility]
--- NOTE | 2018-10-28 09:01 | RAD ---
PORTABLE CHEST: Date: 10/28/18 COMPARISON: 09/01/17 study. HISTORY: Stroke alert. Syncope. FINDINGS: Heart size appears borderline to slightly enlarged with postop sternotomy changes. The lungs are kilo r of any infiltrative process. No signs of failure. IMPRESSION: Borderline heart size. No acute changes. POS: [facility]
[2018-10-28 09:06] LABS: Bilirubin Negative (Negative); Blood, Urine Small (Negative); Clarity CLOUDY (Clear); Glucose, Urine (Dipstick) >=1000 mg/dL (Negative); Leukocyte Negative (Negative); Nitrite Negative (Negative); Protein, Urine (Dipstick) 100 mg/dL (Neg-Trace); Urobilinogen 0.2 mg/dL (0.2-1.0)
[2018-10-28 09:11] LABS: Squamous Epithelial 0-3 HPF (0-3)
[2018-10-28 09:16] LABS: Amphetamine Not Detected (NotDetected); Barbiturates Screen Not Detected (NotDetected); Benzodiazepine Screen Not Detected (NotDetected); Cocaine Metabolite Screen Not Detected (NotDetected); Medtox Control Line Valid? VALID (VALID); Medtox Reader # READER 4; Methadone Not Detected (NotDetected); Methamphetamine Not Detected (NotDetected); Opiate Screen Not Detected (NotDetected); Oxycodone Screen Not Detected (NotDetected); Phencyclidine (PCP) Not Detected (NotDetected); THC/Cannabinoid Screen Not Detected (NotDetected); Tricyclic Screen Not Detected (NotDetected)
[2018-10-28 09:17] LABS: Pathc Cast-AUWi Flag 2.99 (0-2.49)
[2018-10-28 09:32] LABS: Bacteria/HPF Rare-Few HPF (None Seen); Crystals/HPF 1+ AMORPH URATES HPF (Negative); Yeast-All Forms None Seen HPF (None Seen)
[2018-10-28] MEDS ORDERED: Sodium Chloride 0.9% 1,000 ML IV SCH (13:15)
[2018-10-28] MEDS ORDERED: cefTRIAXone\\ROCEPHIN 1 GM in Sodium Chloride 0.9% 100 ML IVPB SCH (14:00)
--- NOTE | 2018-10-28 15:44 | HP ---
PRIMARY CARE PROVIDER: Mehreen Fernández MD PRIMARY NEUROLOGIST: Dr. Graeme Moody. CHIEF COMPLAINT: Found down. HISTORY OF PRESENT ILLNESS: This is an 83-year-old male, who initially presented to [facility] Emergency Department in transfer from [place], where the patient is a current resident in Assisted Living. The patient's history is significant for advanced dementia but is functional of activities of daily living, using a rolling walker for ambulation, attending multiple activities and visiting with his family. The patient was last seen at baseline approximately 7:00 p.m., 10/27/2018, by his daughter. The patient normally is able to carry on conversations, but does have difficulty with short-term memory loss. The family reports the patient was apparently found next to his bed on the floor and notified EMS personnel. EMS reported the patient continued to say "I am sorry" en route to the emergency department. The patient does have a history of seizures and takes chronic Keppra. The patient currently denies any specific complaints, headache, vision disturbance, and is wondering why he is in the hospital. In the emergency room, the patient underwent general evaluation including metabolic screening showing questionable mild urinary tract infection. CT imaging of the brain was unremarkable and the patient was noted with mild hyponatremia with sodium of 129. The patient received intravenous normal saline and has been stable in the emergency room. PAST MEDICAL HISTORY: 1. Advanced dementia likely Alzheimer's type. 2. Obstructive sleep apnea. 3. Glaucoma. 4. Dyslipidemia. 5. Seizure disorder. 6. Diabetes mellitus, type 2. 7. Spinal stenosis. 8. Benign prostatic hyperplasia. PAST SURGICAL HISTORY: 1. Status post coronary artery bypass grafting. 2. Status post cholecystectomy. 3. Status post tonsillectomy. CURRENT MEDICATIONS: Will need to be confirmed with family members. ALLERGIES: NO KNOWN DRUG ALLERGIES. FAMILY HISTORY: No inheritable diseases per report. SOCIAL HISTORY: The patient is , resides at [facility] in Memory Care Unit. No current alcohol, tobacco, or illicit drug use. Ambulatory with use of a rolling walker. Accompanied by his two daughters in the hospital. REVIEW OF SYSTEMS: CONSTITUTIONAL: Negative for weight loss or gain, ability to conduct usual activities. SKIN: Negative for rash, itching. EYES: Negative for double vision, pain. ENT/MOUTH: Negative for nose bleeding, neck stiffness, pain, tenderness. CARDIOVASCULAR: Negative for palpitations, dyspnea on exertion, orthopnea. RESPIRATORY: Negative for shortness of breath, wheezing, cough, hemoptysis, fever or night sweats. GASTROINTESTINAL: Negative for poor appetite, abdominal pain, heartburn, nausea, vomiting, constipation, or diarrhea. GENITOURINARY: Negative for urgency, frequency, dysuria, nocturia. MUSCULOSKELETAL: Negative for pain, swelling. NEUROLOGIC/PSYCHIATRIC: Negative for anxiety, depression. ALLERGY/IMMUNOLOGIC: Negative for skin rash, bleeding tendency. Otherwise negative except as stated per HPI. PHYSICAL EXAMINATION: VITAL SIGNS: On admission, blood pressure 119/86, pulse 96, respiratory rate 18, temperature 98 degrees Fahrenheit, O2 saturation 95% on room air. GENERAL APPEARANCE: This is an 83-year-old male, alert and oriented to person, in no acute distress. HEENT: Pupils are equal, round, and reactive to light and accommodation. Extraocular muscles are intact. No scleral icterus. No conjunctival injection. Nares patent. OP is clear. Teeth in fair repair. NECK: Supple. No cervical adenopathy. No thyromegaly. No carotid bruits. No JVD appreciated. Cervical spine with full active and passive range of motion. No meningeal signs noted. CHEST: Lungs are clear to auscultation bilaterally. CARDIOVASCULAR: S1 and S2 without noted murmur, rub, or gallop. ABDOMEN: Rounded, soft, nontender, and nondistended. Bowel sounds are positive in all 4 quadrants. No hepatosplenomegaly. No abdominal bruits. No rebound or guarding appreciated. EXTREMITIES: Warm and dry with fair turgor. No clubbing, cyanosis, or asymmetric edema appreciated. Pulses are palpable distally at the dorsalis pedis, posterior tibial, and popliteal arteries bilaterally. Capillary refill less than 2 seconds. NEUROLOGIC: Alert and oriented to person. Moves all extremities. States 2 to 3 words. Not observed ambulatory during this exam. PERTINENT LAB AND X-RAY FINDINGS: Sodium 129, potassium 4.0, chloride 93, CO2 of 27, BUN 17, creatinine 1.13, estimated GFR 62, glucose 258. Lactic acid level 1.9, calcium 9.5. LFTs within normal limits. Troponin I 0.010. TSH 1.05. CBC showed a white blood cell count of 15.8, hemoglobin 13, hematocrit 38, and platelet count 268 with 88% neutrophils. Urinalysis showed greater than 1000 glucose, small blood, leukocyte esterase and nitrite negative, 11-20 wbc's per high-power field. Urine drug screen dated 10/28/2018, negative. Plasma alcohol level less than 10. CT of the brain without contrast dated 10/28/2018, showed no acute intracranial process. CT of the cervical spine dated 10/28/2018, showed no acute fracture dislocation. Portable chest x-ray dated 10/28/2018, showed no acute cardiopulmonary process. EKG dated 10/28/2018 by my interpretation shows sinus mechanism with heart rates in the 90s. Normal axis. No acute ST-T wave changes appreciated. ASSESSMENT AND PLAN: 1. Acute metabolic encephalopathy. Suspect multifactorial process in conjunction with mild hyponatremia in conjunction with possible early cystitis. Await final urine culture results. Continue intravenous normal saline, low volume with serial sodium monitoring. 2. Urinary tract infection, suspected after initial urinalysis. Recommend antibiotic therapy with oral agent for 3 to 5 days and monitor urine culture results. 3. Hyponatremia, appears chronic. Intravenous normal saline initiated in the emergency room. Serial sodium monitoring. Encourage increased regular oral intake. 4. Advanced dementia, likely Alzheimer's type. Continue supportive management. Family at the bedside for re-orientation. 5. Diabetes mellitus, type 2. Accu-Cheks before meals and at bedtime. Resume home diabetic regimen. ADA diet. 6. Prophylaxis. General fall risk precautions. 7. Code status is full. Surrogate medical decision maker is the patient's daughter. 8. Disposition. Family wishing to transfer patient to [facility] in [place], [place], 10/28/2018. Transfer Center has been notified and arrangements for transport are pending. Job ID: [id number]
[2018-10-28] MEDS ORDERED: cefTRIAXone\\ROCEPHIN 1 GM VIAL ONE (16:25)
== END 2018-10-28 18:42 | disposition short-term general hospital (02) ==
LOC: ERS 06:27
DX: R41.82 Altered mental status, unspecified (principal); E87.0 Hyperosmolality and hypernatremia; D72.829 Elevated white blood cell count, unspecified; G47.30 Sleep apnea, unspecified; K21.9 Gastro-esophageal reflux disease without esophagitis; N40.0 Benign prostatic hyperplasia without lower urinary tract symptoms; E78.5 Hyperlipidemia, unspecified; I10 Essential (primary) hypertension; E11.9 Type 2 diabetes mellitus without complications; F32.9 Major depressive disorder, single episode, unspecified; Z79.899 Other long term (current) drug therapy; Z79.82 Long term (current) use of aspirin; Z79.84 Long term (current) use of oral hypoglycemic drugs
CPT/HCPCS: 36415; 36416; 51701; 70450; 71045; 72125; 80053; 80306; 80307; 81003; 81015; 82550; 83605; 84443; 84484; 85025; 87040; 87086; 93005; 96361; 96365; 96375; J0696; J1630

== ENCOUNTER 2019-09-03 10:48 | Inpatient (IN) | payer MEDICARE, BC ==
[2019-09-03] MEDS ORDERED: Nitroglycerin 0.4 MG TAB 1 EACH ONE (11:04)
[2019-09-03] MEDS ORDERED: Magnesium 2 GM/50 ML BAG (IN WATER) ONE (11:12)
--- NOTE | 2019-09-03 11:21 | RAD ---
EXAM: Single view of the chest HISTORY: Chest pain COMPARISON: 10/28/2018 FINDINGS: Single view of the chest shows a normal sized cardiomediastinal silhouette. The patient is status post CABG. There is no evidence of consolidation, mass, or pleural effusion. The bones are unremarkable. IMPRESSION: No evidence of acute cardiopulmonary disease
[2019-09-03 11:29] LABS: #Basophils 0.1 thou/uL (0.0-0.2); #Eosinphils 0.4 thou/uL (0.0-0.7); #Lymphocytes 1.7 thou/uL (1.20-3.40); #Monocytes 0.9 thou/uL (0.11-0.59); #Neutrophils 4.7 thou/uL (1.40-6.50); %Basophils 0.8 % (0.0-1.0); %Lymphocytes 22.2 % (21.0-51.0); %Monocytes 11.1 % (0.0-10.0); %Neutrophils 60.9 % (42.0-75.0); Hemoglobin 10.4 g/dL (14.0-18.0); Mean Corpuscular HGB CONC 32.1 g/dL (32.0-36.0); Mean Corpuscular Hemoglobin 29.6 pg (27.0-31.0); Mean Corpuscular Volume 92.2 fL (78.0-98.0); Mean Platelet Volume 7.7 fL (7.4-10.4); Platelet Count 332 thou/uL (130-400); RBC Distribution Width 14.1 % (11.5-14.5); White Blood Cell (WBC) Count 7.7 thou/uL (4.8-10.8)
[2019-09-03 11:50] LABS: ALT (SGPT) 13 U/L (8-55); AST (SGOT) 15 U/L (5-34); Albumin 3.5 g/dL (3.4-4.8); Alkaline Phosphatase 177 U/L (40-110); Anion Gap 13 mmol/L (10-20); BUN (Urea Nitrogen) 16 mg/dL (8.4-25.7); Bilirubin, Total 0.9 mg/dL (0.2-1.2); Calc. Creatinine Clearance 0 mL/min (70-130); Carbon Dioxide 25 mmol/L (23-31); Estimated GFR-MDRD 72; Globulin 2.6 g/dL (2.4-3.5); Glucose 147 mg/dL (83-110); Protein, Total 6.1 g/dL (5.8-8.1)
[2019-09-03 12:01] LABS: Chloride 102 mmol/L (98-107); Potassium 4.5 mmol/L (3.5-5.1); Sodium 135 mmol/L (136-145)
--- NOTE | 2019-09-03 12:27 | CT ---
EXAM: CTA of the chest HISTORY: Chest pain COMPARISON: 10/24/2013 TECHNIQUE: Multiple contiguous axial images were obtained a CTA of the chest with contrast per pulmon tonya embolism protocol. 3-D oblique MIP reformats and direct coronal reformats were performed. FINDINGS: HEART: Normal in size without focal cardiac abnormality. PULMONARY ARTERIES: Normal in caliber without filling defects to suggest pulmonary emboli. There is s treak artifact in the main pulmonary artery from the patient's coronary artery hardware. MEDIASTINUM: No hilar or mediastinal lymphadenopathy. LUNGS: No focal infiltrates or masses. PLEURAL SPACE: No pleural effusion or pneumothorax. CHEST WALL SOFT TISSUES: Unremarkable VISUALIZED OSSEOUS STRUCTURES: Degenerative changes in the spine. Remote right rib fractures. The pat ient is status post CABG. VISUALIZED SUBDIAPHRAGMATIC STRUCTURES: Stable hypodensity in the right lobe of the liver likely repr esents a cyst. Status post cholecystectomy. IMPRESSION: No evidence of pulmonary thromboembolism
[2019-09-03 14:46] LABS: Troponin I 0.057 ng/mL (< 0.028)
[2019-09-03] MEDS ORDERED: Bisacodyl 10 MG SUPP PR PRN (14:53)
[2019-09-03] MEDS ORDERED: Nitroglycerin 0.4 MG TAB (25 Tab Bottle) PO PRN (14:53)
[2019-09-03] MEDS ORDERED: Loratadine 10 MG TAB PO PRN (14:53)
[2019-09-03] MEDS ORDERED: Senokot S 8.6-50 MG TAB PO PRN (14:53)
[2019-09-03] MEDS ORDERED: Zolpidem Tartrate 5 MG TAB PO PRN (14:53)
[2019-09-03] MEDS ORDERED: Loperamide HCl 2 MG CAP PO PRN (14:53)
[2019-09-03] MEDS ORDERED: Ondansetron PF 4 MG/2 ML Vial IVP PRN (14:53)
[2019-09-03] MEDS ORDERED: Sodium Chloride 0.65% Nasal 44 ML BOT EA NARE PRN (14:53)
[2019-09-03] MEDS ORDERED: Diabetic Tussin 200 MG/10 ML UDCUP PO PRN (14:53)
[2019-09-03] MEDS ORDERED: hydrALAZINE 20 MG/ML VIAL SLOW IVP PRN (14:53)
[2019-09-03] MEDS ORDERED: Cepastat Lozenges 1 LOZ PO PRN (14:53)
[2019-09-03] MEDS ORDERED: Calcium Carbonate 500 MG ChewTAB PO PRN (14:53)
[2019-09-03] MEDS ORDERED: Ondansetron ODT 4 MG TAB PO PRN (14:53)
[2019-09-03] MEDS ORDERED: HYDROcodone/Acetaminophen 5/325 mg Tablet PO PRN (14:53)
[2019-09-03 15:54] VITALS: BMI 28.9
[2019-09-03] MEDS ORDERED: Iopamidol-370 76% 500 ML 1 ML ONE (16:06)
[2019-09-03] MEDS ORDERED: Dextrose 50% Abboject 50 ML SYRINGE SLOW IVP PRN (17:28)
[2019-09-03] MEDS ORDERED: Dextrose 5% in Water 1,000 ML IV PRN (17:28)
[2019-09-03] MEDS ORDERED: HumaLOG 300 UNITS/3 ML VIAL SC PRN ×2 (17:28)
[2019-09-03 17:50] LABS: Troponin I 0.307 ng/mL (< 0.028)
--- NOTE | 2019-09-03 18:29 | HP ---
PRIMARY CARE PHYSICIAN: Mehreen Fernández MD REASON FOR ADMISSION: Chest pain. HISTORY OF PRESENT ILLNESS: An 84-year-old male with history of coronary artery disease, who was doing rehab where the patient started having chest pain on the left side, which lasted for few seconds and subsequently pain subsided and that is why the patient was brought to emergency room for evaluation. When he presented to emergency room, he was having mild vague chest discomfort. The patient was not able to describe his chest pain in detail and family member was also not able to provide good history. After emergency room, the patient was admitted to telemetry floor where I saw this patient. At that time, the patient was not having any chest pain. In the emergency room, workup was negative. The patient is being admitted overnight for observation to rule out acute coronary syndrome. So far, workup is unremarkable. The patient had a chest x-ray as well as CT angiography that was negative for PE and cardiogram and troponin were negative. PAST MEDICAL HISTORY: Glaucoma; obstructive sleep apnea, on CPAP; gastroesophageal reflux disease; benign enlargement of prostate; hypertension; dyslipidemia; diabetes type 2; lumbar stenosis; osteoarthritis of hip; diabetes, type 2; seizure disorder; and gastroesophageal reflux disease. PAST SURGICAL HISTORY: Cardiac CABG x3 with a history of cardiac stent, cholecystectomy, tonsillectomy, left hip replacement. PAST PSYCHIATRIC HISTORY: Anxiety, depression, dementia. SOCIAL HISTORY: The patient drinks alcohol socially. He denies any smoking. He denies any other illicit drug abuse. Currently, he lives at [facility]. ALLERGIES: SULFA DRUGS. REVIEW OF SYSTEMS: CONSTITUTIONAL: Negative for weight loss or gain, ability to conduct usual activities. SKIN: Negative for rash, itching. EYES: Negative for double vision, pain. ENT/MOUTH: Negative for nose bleeding, neck stiffness, pain, tenderness. CARDIOVASCULAR: Negative for palpitations, dyspnea on exertion, orthopnea. RESPIRATORY: Negative for shortness of breath, wheezing, cough, hemoptysis, fever or night sweats. GASTROINTESTINAL: Negative for poor appetite, abdominal pain, heartburn, nausea, vomiting, constipation, or diarrhea. GENITOURINARY: Negative for urgency, frequency, dysuria, nocturia. MUSCULOSKELETAL: Negative for pain, swelling. NEUROLOGIC/PSYCHIATRIC: Negative for anxiety, depression. ALLERGY/IMMUNOLOGIC: Negative for skin rash, bleeding tendency. All review of systems reviewed and negative except as mentioned in HPI. CURRENT HOME MEDICATIONS: 1. Lasix 20 mg daily. 2. Toprol-XL 25 mg twice daily. 3. Aspirin 325 mg daily. 4. Lumigan ophthalmic drops left eye daily. 5. Brimonidine ophthalmic drops twice daily. 6. Centrum Silver 1 tablet daily. 7. Nexium 40 mg daily. 8. Ferrous sulfate 325 mg p.o. daily. 9. Keppra 1000 mg twice daily. 10. Lisinopril 30 mg p.o. daily. 11. Melatonin 5 mg p.o. q.h.s. 12. Metformin 500 mg p.o. daily. 13. Zoloft 25 mg p.o. daily. 14. Januvia 25 mg p.o. daily. 15. Travatan ophthalmic drops at bedtime. EMERGENCY ROOM COURSE: The patient is given magnesium sulfate 2 g and nitroglycerin. PHYSICAL EXAMINATION: VITAL SIGNS: On arrival, blood pressure 111/59, pulse 76, respiratory rate 18, saturation 97% on room air. Weight 91.6 kg. GENERAL: The patient is currently alert, awake, in no obvious acute distress. HEENT: Head; normocephalic, atraumatic. Eyes; pupils are round, reactive to light. Extraocular muscles intact. ENT; oropharynx within normal limits. Moist mucous membranes. No oral lesion. No pharyngeal erythema. No exudate. NECK: Supple. No JVD. No meningeal signs of irritation. LUNGS: Clear to auscultation without any rhonchi or rales. CARDIAC: S1 and S2. Regular with a frequent PVC noted, but no murmur noted. BACK: Unremarkable. No CVA tenderness. EXTREMITIES: Upper extremity, passive movement of all joints are normal. Lower extremity, edema noted bilateral lower extremity more on the right lower extremity pitting in nature. NEUROLOGIC: Grossly nonfocal examination. SKIN: No skin rash. HEMATOLOGIC: No lymphadenopathy. PSYCHIATRIC: Normal affect. SIGNIFICANT LABORATORY DATA: EKG showing normal sinus rhythm with frequent PVCs and nonspecific ST-T changes. Chest x-ray done in the emergency room, which showing no evidence of acute cardiopulmonary process. CT angiography done in the emergency room, which showing no evidence of pulmonary embolism. CBC; WBC 7.7, hemoglobin 10.4, platelet 332. BMP; sodium 135, potassium 4.5, chloride 102, carbon dioxide 25, BUN 16, creatinine 0.99, glucose 147, calcium 9.0. LFT; AST 15, ALT 13, alkaline phosphatase 177, albumin 3.5. Troponin 0.026 and then 0.057. ASSESSMENT AND PLAN: 1. Chest pain: The patient's chest pain description is atypical though the patient is very poor historian. His EKG showing frequent PVCs and nonspecific ST-T changes. He has underlying history of coronary artery disease and he is following [facility]. At this point, the patient's troponin is elevated and that is why we will consult Cardiology and we will obtain echocardiography. Family member do not want any aggressive intervention and they are only wanted to take him to rehab again, but we will consult Cardiology and will decide about that decision. 2. Frequent premature ventricular contractions. The patient is given magnesium sulfate in the emergency room. We will continue with metoprolol 25 mg twice daily. We are obtaining echocardiography. 3. Diabetes type 2. We will continue with Januvia 25 mg p.o. daily. We will hold on metformin because of CT angiography. We will continue with insulin as per sliding scale protocol. 4. Glaucoma. We will continue the patient's ophthalmic drops as per home dosage. 5. Benign enlargement of prostate. We will continue Flomax 0.4 mg p.o. daily. 6. Gastroesophageal reflux disease. We will continue Protonix 20 mg p.o. daily. 7. Coronary artery disease. We will continue with aspirin 325 mg p.o. daily. We will check lipid profile tomorrow. 8. Seizure disorder. We will continue lamotrigine 100 mg p.o. b.i.d. and Keppra 1000 mg p.o. b.i.d. 9. History of hyponatremia. The patient was on fluid restriction. Currently, sodium is better and because of edema, we will hold on salt tablet for now. The patient only will need continuous fluid restriction. 10. Normocytic normochromic anemia. We will continue with ferrous sulfate 325 mg p.o. daily. 11. Edema, lower extremity, most likely because of his surgery, but we will rule out deep venous thrombosis. 12. Deep venous thrombosis prophylaxis. We will continue Lovenox 40 mg subcu daily. 13. Gastrointestinal prophylaxis, Protonix 20 mg p.o. daily. CODE STATUS: The patient is full code. The patient's daughter is surrogate decision maker. DISPOSITION PLAN: Based on clinical course, plan of care discussed with the patient and family member in detail. Job ID: [id number]
[2019-09-03] MEDS: lamoTRIgine 100 MG TAB PO SCH (21:23)
[2019-09-03] MEDS: levETIRAcetam 500 MG TAB PO SCH (21:23)
[2019-09-03] MEDS: Metoprolol Tartrate 25 MG TAB PO SCH (21:23)
[2019-09-03] MEDS: Latanoprost 0.005% Ophth Soln 2.5 ml Bottle L EYE SCH (21:24)
[2019-09-03] MEDS: Saccharomyces boulardii 250 MG CAP PO SCH (21:24)
[2019-09-03] MEDS: Melatonin 3 MG TAB PO PRN (22:00)
[2019-09-04] MEDS: Acetaminophen 325 MG TAB PO PRN ×3 (03:42→20:31)
[2019-09-04 04:57] LABS: Cardiac Risk 4.2 (Less than 4.5)
[2019-09-04] MEDS: Mometasone 100 MCG HFA INHALER INH SCH ×2 (07:21→18:15)
--- NOTE | 2019-09-04 08:27 | ULT ---
BILATERAL LOWER EXTREMITY VENOUS DOPPLER ULTRASOUND: Date: 09/04/2019 HISTORY: Bilateral lower extremity edema. TECHNIQUE: North scale ultrasound with color flow and spectral Doppler imaging of the deep venous systems of the lower extremities was performed bilaterally. FINDINGS: There is good flow, compression, and augmentation noted in the common femoral, femoral, deep femoral, popliteal, posterior tibial, and greater saphenous veins on either side. IMPRESSION: No evidence of deep venous thrombosis in either lower extremity. POS: OFF
[2019-09-04] MEDS: Enoxaparin Sodium 40 MG/0.4 ML SYRINGE SC SCH (08:54)
[2019-09-04] MEDS: Polyethylene Glycol 3350 17 GM Packet PO SCH (08:55)
[2019-09-04] MEDS: Tamsulosin HCl 0.4 MG CAP PO SCH (08:56)
[2019-09-04] MEDS: levETIRAcetam 500 MG TAB PO SCH ×2 (08:56→20:30)
[2019-09-04] MEDS: Saccharomyces boulardii 250 MG CAP PO SCH ×2 (08:59→20:29)
[2019-09-04] MEDS: Ferrous Sulfate 325 MG TAB PO SCH (08:59)
[2019-09-04] MEDS: Famotidine 20 MG TAB PO SCH (08:59)
[2019-09-04] MEDS: Metoprolol Tartrate 25 MG TAB PO SCH ×2 (08:59→20:30)
[2019-09-04] MEDS: Aspirin 325 mg Enteric Coated Tablet PO SCH (09:00)
[2019-09-04] MEDS: lamoTRIgine 100 MG TAB PO SCH ×2 (09:00→20:31)
[2019-09-04] MEDS: Latanoprost 0.005% Ophth Soln 2.5 ml Bottle L EYE SCH ×2 (09:01→20:29)
[2019-09-04] MEDS: Alogliptin 6.25 MG TAB PO SCH (09:03)
--- NOTE | 2019-09-04 13:13 | PDOC.HOSPP ---
- Subjective Encounter Date: 09/04/19 Encounter Time: 08:45 Subjective: Patient seen and examined. No new complaints. No overnight events - Objective Vital Signs & Weight: Vital Signs (12 hours) Temp Pulse Resp BP BP Pulse Ox 09/04/19 12:02 97.8 F 75 16 156/67 H 97 09/04/19 10:20 162/72 H 09/04/19 08:50 97.2 F L 85 18 159/76 H 95 09/04/19 03:45 98.2 F 78 18 135/63 98 Weight Weight 201 lb 9.6 oz I&O: 09/03/19 09/04/19 09/05/19 06:59 06:59 06:59 Intake Total 360 Output Total 1050 Balance -690 Result Diagrams: 09/03/19 11:09 09/03/19 11:09 Additional Labs: Accuchecks 09/04/19 09/04/19 09/03/19 11:18 05:15 21:25 POC Glucose 143 H 146 H 173 H 09/03/19 18:24 POC Glucose 129 H Radiology Reviewed by me: Yes EKG Reviewed by me: Yes Hospitalist ROS - Review of Systems Eyes: denies: pain, vision change, conjunctivae inflammation, eyelid inflammation, redness, other ENT: denies: ear pain, ear discharge, nose pain, nose discharge, nose congestion , mouth pain, mouth swelling, throat pain, throat swelling, other Respiratory: denies: cough, dry, shortness of breath, hemoptysis, SOB with excertion, pleuritic pain, sputum, wheezing, other Cardiovascular: denies: chest pain, palpitations, orthopnea, paroxysmal noc. dyspnea, edema, light headedness, other Gastrointestinal: denies: nausea, vomiting, abdominal pain, diarrhea, constipation, melena, hematochezia, other Genitourinary: denies: dysuria, frequency, incontinence, hematuria, retention, other Musculoskeletal: denies: neck pain, shoulder pain, arm pain, back pain, hand pain, leg pain, foot pain, other Skin: denies: rash, lesions, sheron, bruising, other - Medication Medications: Active Medications Generic Name Dose Route Start Last Admin Trade Name Freq PRN Reason Stop Dose Admin Acetaminophen 650 mg 09/03/19 14:53 09/04/19 08:58 Tylenol PO 650 mg Q4H PRN Administration Headache/Fever/Mild Pain (1-3) Acetaminophen 650 mg 09/03/19 22:09 09/04/19 03:42 Tylenol PO 650 mg Q4H PRN Administration Headache/Fever or Pain Alogliptin Benzoate 6.25 mg 09/04/19 09:00 09/04/19 09:03 Alogliptin PO Not Given DAILY [facility] Aspirin 325 mg 09/04/19 09:00 09/04/19 09:00 Ecotrin PO 325 mg DAILY ALEX Administration Enoxaparin Sodium 40 mg 09/04/19 09:00 09/04/19 08:54 Lovenox SC 40 mg 0900 ALEX Administration Famotidine 20 mg 09/04/19 09:00 09/04/19 08:59 Pepcid PO 20 mg DAILY ALEX Administration Ferrous Sulfate 325 mg 09/04/19 09:00 09/04/19 08:59 Feosol PO 325 mg DAILY ALEX Administration Lamotrigine 100 mg 09/03/19 21:00 09/04/19 09:00 Lamictal PO 100 mg BID ALEX Administration Latanoprost 1 drop 09/03/19 21:00 09/04/19 09:01 Xalatan 0.005% Ophth Soln L EYE 1 drop BID ALEX Administration Levetiracetam 1,000 mg 09/03/19 21:00 09/04/19 08:56 Keppra PO 1,000 mg BID ALEX Administration Melatonin 3 mg 09/03/19 22:09 09/03/19 22:00 Melatonin PO 3 mg HSPRN PRN Administration Insomnia Metoprolol Tartrate 50 mg 09/03/19 21:00 09/04/19 08:59 Lopressor PO 50 mg BID [facility] Administration Mometasone Furoate 1 puff 09/04/19 06:30 09/04/19 07:21 Asmanex Hfa 100 Mcg INH Not Given BID-RT [facility] Pantoprazole Sodium 40 mg 09/04/19 09:00 09/04/19 08:57 Protonix PO 40 mg DAILY ALEX Administration Polyethylene Glycol 17 gm 09/04/19 09:00 09/04/19 08:55 Miralax PO 17 gm DAILY ALEX Administration Saccharomyces Boulardii 250 mg 09/03/19 21:00 09/04/19 08:59 Florastor PO 250 mg BID ALEX Administration Tamsulosin HCl 0.4 mg 09/04/19 09:00 09/04/19 08:56 Flomax PO 0.4 mg DAILY ALEX Administration - Exam General Appearance: NAD, awake alert Eye: PERRL, anicteric sclera ENT: normocephalic atraumatic, no oropharyngeal lesions Neck: supple, symmetric, no JVD, no thyromegaly Heart: RRR, no murmur, no gallops, no rubs Respiratory: CTAB, no wheezes, no rales, no ronchi Gastrointestinal: soft, non-tender, non-distended, normal bowel sounds Extremities: no cyanosis, no clubbing, 1+ LE edema Skin: normal turgor, no lesions Neurological: no focal deficits Musculoskeletal: normal tone, normal strength Psychiatric: normal affect, normal behavior Hosp A/P (1) NSTEMI (non-ST elevated myocardial infarction) Code(s): I21.4 - NON-ST ELEVATION (NSTEMI) MYOCARDIAL INFARCTION Status: Acute (2) Seizure disorder Code(s): G40.909 - EPILEPSY, UNSP, NOT INTRACTABLE, WITHOUT STATUS EPILEPTICUS Status: Chronic (3) CAD (coronary artery disease) Code(s): I25.10 - ATHSCL HEART DISEASE OF [place] CORONARY ARTERY W/O ANG PCTRS Status: Chronic Qualifiers: (4) DM type 2 (diabetes mellitus, type 2) Status: Chronic (5) Dyslipidemia Code(s): E78.5 - HYPERLIPIDEMIA, UNSPECIFIED Status: Chronic (6) Hypertension Code(s): I10 - ESSENTIAL (PRIMARY) HYPERTENSION Status: Chronic Qualifiers: (7) BPH (benign prostatic hyperplasia) Code(s): N40.0 - BENIGN PROSTATIC HYPERPLASIA WITHOUT LOWER URINRY TRACT SYMP Status: Chronic (8) GERD (gastroesophageal reflux disease) Code(s): K21.9 - GASTRO-ESOPHAGEAL REFLUX DISEASE WITHOUT ESOPHAGITIS Status: Chronic (9) Anemia, normocytic normochromic Code(s): D64.9 - ANEMIA, UNSPECIFIED Status: Chronic - Plan old records reviewed/req, plan discussed w/ family 09/04/19 cardiology consulted echo pending discussed with family may be intpt candidate, will ask manager contact add lipitor continue medical therapy
[2019-09-04] MEDS: Melatonin 3 MG TAB PO PRN (20:30)
[2019-09-04] MEDS ORDERED: Atorvastatin Calcium 40 MG TAB PO SCH (21:00)
--- NOTE | 2019-09-04 21:55 | CON ---
DATE OF CONSULTATION: 09/04/2019 INDICATION FOR CONSULTATION: An 84-year-old gentleman with history of known coronary artery disease status post bypass surgery, status post angioplasty and stent placement post CABG, who has been followed by [facility] for the last several years by Dr. Hussain [place]. He has been in rehab after falling and breaking his right hip and underwent surgical repair. He was doing rehab and they have been using a kazoo to see who could maintain the longest note or whatever doing expiratory blowing on the kazoo. He then presented here after the facility said that he was having some chest discomfort. Since being here his cardiac enzymes have been slightly elevated but still would be considered indeterminate for myocardial infarction, but most likely this is a [id number] elevation myocardial infarction. The peak troponin I, this is the last one done I believe yesterday , is up to 0.307. On admission, it was 0.026. He denies any chest pain at this time and has no shortness of breath or dyspnea on exertion unless he exerts himself. He has been stable. Otherwise, vital signs have also remained stable. He denies any chest pain at this time. PAST MEDICAL HISTORY: Significant for coronary artery disease, bypass surgery. He had angioplasty and stent placement to the [place] left circumflex in 2002. Previous to that he had undergone bypass surgery with saphenous vein graft to a diagonal branch and also a saphenous vein graft to the left anterior descending artery. The right coronary artery had a 95% occlusion and distally was 100% occluded was a small vessel and was not intervened upon either by bypass or angioplasty stent placement. Ejection fraction at the time of cardiac catheterization was 55% to 60%. Also, at the time of catheterization in 2002, the distal saphenous vein graft to the left anterior descending artery had a 40% distal stenosis. He was implanted with Cypher 2.5 x 28 mm stent was placed into the first obtuse marginal branch of left circumflex due to an 80% stenosis. He also had 95% stenosis of a small intermediate branch, which was filling retrograde from the left anterior descending artery. He has been doing relatively well thus far and has maintained followups with Dr. Hussain North on a yearly basis. His past medical history is significant for coronary artery disease, bypass surgery as noted above, obstructive sleep apnea. He uses CPAP mask for sleep apnea. He has glaucoma. He has gastroesophageal reflux disease. He has benign prostatic hypertrophy. He has hypercholesterolemia, diabetes, hypertension. He has had osteoarthritis. He has history of lumbar stenosis. He also has some type of seizure disorder. The family cannot tell me why he has seizure disorder, but he has been having seizure disorders and has not had any recent seizure. He has also had a cholecystectomy, left hip replacement, now a right hip replacement due to fracture and tonsillectomy. He has history of anxiety and depression, and also has dementia. SOCIAL HISTORY: He drink alcohol in the past. He is in an assisted living facility now. He has no history of tobacco abuse recently. No illicit drug use. He lives at [facility]. ALLERGIES: ALLERGIC TO SULFA DRUGS. REVIEW OF SYSTEMS: Mainly what is noted in the history of present illness. He has lost a little bit of weight, but no significant amount. He denies any HEENT complaints. He had no pulmonary complaints. He had no significant GI complaints or complaints. Musculoskeletal, he has had some swelling in the lower extremities, but is more so after the falls and fractures in his hips. Otherwise, review of systems done and unremarkable. MEDICATIONS: Prior to admission include: 1. Lasix 20 mg a day. 2. Toprol-XL 25 mg b.i.d. 3. Aspirin 325 mg a day. 4. Lumigan ophthalmic drops in the left eye. 5. He also takes brimonidine ophthalmic drops twice a day. 6. Centrum Silver vitamins. 7. Nexium 40 mg a day. 8. Ferrous sulfate 325 mg a day. 9. Keppra 1000 mg b.i.d. 10. Lisinopril 30 mg a day. 11. Melatonin 5 mg at bedtime. 12. Metformin 500 mg once a day. 13. Zoloft 25 mg a day. 14. Januvia 25 mg a day. 15. Travatan ophthalmic drops at bedtime. Previously, this patient had been placed on statin medication and became very angry because he developed pain from the statins and since that time according to my records, he has not been placed on statin medications. Since he has severe myalgias associated with statin medications, would hold that medication at this time. PHYSICAL EXAMINATION: GENERAL: Reveals an elderly gentleman, who is somewhat tearful at times. He is hard of hearing. VITAL SIGNS: Stable. Blood pressure earlier today was 135/63. He became agitated and blood pressure was 169/57, heart rates in the 70s, shows a sinus rhythm with occasional PVCs. He is afebrile. Respiratory rate is about 16. O2 saturation is 97%. HEENT: Shows the head to be normocephalic and atraumatic. I did not hear any significant bruits. CHEST: Actually clear to auscultation. Did not hear any rales, rhonchi or wheezing. CARDIOVASCULAR: Reveals regular rate and rhythm. I did not hear any significant murmurs, heaves, thrills, bruits, or rubs at this time. He has a well-healed midline surgical incision after median sternotomy. ABDOMEN: Soft and nontender. Positive bowel sounds are present. EXTREMITIES: Showed 1 to 2+ lower extremity edema. He has surgical incision over the right upper thigh area laterally after hip surgery, just recently. Pedal pulses are present. NEUROLOGIC: The patient does have some degree of dementia. He is hard of hearing. SKIN: Warm and dry. He did have an echocardiogram today, which showed an ejection fraction of 35% to 40% with left ventricular dilatation. The right ventricle appeared to be normal in size. The left atrium was moderately dilated, as well as the right atrium. He did have mild mitral and tricuspid valve regurgitation. DIAGNOSTIC STUDIES: His EKG shows sinus rhythm with PVCs. There were no other significant EKG changes. Some nonspecific changes, but no ST-segment elevation was noted. IMPRESSION: 1. Elderly gentleman with history of known coronary artery disease, status post bypass surgery many years ago. His last cardiac catheterization was in 2002, where he underwent angioplasty and stent placement to the left circumflex. At that time, he had some disease in the saphenous vein graft to the left anterior descending artery. He does not know when the last time he has had a stress test but given his age of 84-year-old and dementia, would be very careful in proceeding with any further aggressive management in this patient. He is not in favor of anything more aggressive than what is necessary, just on [id number] scale. He is not interested, for example bypass surgery, any severe or significant invasive procedures. If his enzymes continue to go up or he develops more chest pain, he may be amenable and agreeable to undergo cardiac catheterization for evaluation of the coronary arteries. We will repeat those enzymes and continue to trend upwards. We will continue to manage his medicines. At this time, I would stop his Lipitor since he has had significant problems in the past being on the Lipitor or any statin. If necessary, he may be a candidate for one of the newer medications, which are injectable PCSK9 medications which may help his cholesterol. If he is agreeable to do this, but he would have to have someone inject it due to his dementia. I do not believe he will be a candidate to perform this himself. 2. History of hypertension. This is under good control at this time. 3. History of hypercholesterolemia. According to the laboratory data at this time, his cholesterol was not significantly elevated. His LDL was 80 and triglycerides were 80, with HDL level of 30. At this time, I would hold his cholesterol medicine despite having history of coronary artery disease given his adverse reactions in the past. 4. Elevated blood sugar due to his diet. 5. Diabetes. He continues to have slightly elevated blood sugar, but otherwise is under reasonable control. 6. History of gastroesophageal reflux disease. We will continue to monitor. This patient was to be treated by the primary care service. 7. History of recent right hip fracture and surgery with lower extremity edema. We will continue just to monitor the patient. I will continue to review his medications and decide whether or not there are any other medications that need to be altered. He has been placed on nitroglycerin p.r.n. We may put him on a low dose of Imdur or long-acting nitroglycerin. I would agree with the low-dose Lovenox at this time. Job ID: [id number] [id number]
[2019-09-05] MEDS: Mometasone 100 MCG HFA INHALER INH SCH ×2 (07:19→18:33)
[2019-09-05] MEDS: lamoTRIgine 100 MG TAB PO SCH ×2 (08:47→21:06)
[2019-09-05] MEDS: Metoprolol Tartrate 25 MG TAB PO SCH ×2 (08:47→21:04)
[2019-09-05] MEDS: Lisinopril 5 MG TAB PO SCH ×2 (08:47→21:04)
[2019-09-05] MEDS: Tamsulosin HCl 0.4 MG CAP PO SCH (08:47)
[2019-09-05] MEDS: Ferrous Sulfate 325 MG TAB PO SCH (08:47)
[2019-09-05] MEDS: Famotidine 20 MG TAB PO SCH (08:48)
[2019-09-05] MEDS: levETIRAcetam 500 MG TAB PO SCH ×2 (08:48→21:03)
[2019-09-05] MEDS: Saccharomyces boulardii 250 MG CAP PO SCH ×2 (08:48→21:03)
[2019-09-05] MEDS: Polyethylene Glycol 3350 17 GM Packet PO SCH (08:55)
[2019-09-05] MEDS: Latanoprost 0.005% Ophth Soln 2.5 ml Bottle L EYE SCH ×2 (08:55→21:06)
[2019-09-05] MEDS: Enoxaparin Sodium 40 MG/0.4 ML SYRINGE SC SCH (08:55)
[2019-09-05] MEDS: Aspirin 325 mg Enteric Coated Tablet PO SCH (08:55)
[2019-09-05] MEDS: Alogliptin 6.25 MG TAB PO SCH (08:55)
[2019-09-05] MEDS ORDERED: Communication Order-Pharmacy FS SCH (10:30)
--- NOTE | 2019-09-05 11:03 | PDOC.HOSPP ---
- Subjective Encounter Date: 09/05/19 Encounter Time: 09:00 Subjective: Patient seen and examined. No new complaints. No overnight events - Objective Vital Signs & Weight: Vital Signs (12 hours) Temp Pulse Resp BP Pulse Ox 09/05/19 08:47 89 09/05/19 08:36 98.5 F 89 16 157/73 H 96 09/05/19 04:38 97.3 F L 88 18 145/89 H 96 Weight Weight 201 lb 9.6 oz I&O: 09/04/19 09/05/19 09/06/19 06:59 06:59 06:59 Intake Total 360 480 Output Total 1050 400 Balance -690 80 Result Diagrams: 09/03/19 11:09 09/03/19 11:09 Additional Labs: Accuchecks 09/05/19 09/04/19 09/04/19 06:40 20:49 16:59 POC Glucose 147 H 160 H 159 H 09/04/19 11:18 POC Glucose 143 H Radiology Reviewed by me: Yes EKG Reviewed by me: Yes Hospitalist ROS - Review of Systems ENT: denies: ear pain, ear discharge, nose pain, nose discharge, nose congestion , mouth pain, mouth swelling, throat pain, throat swelling, other Respiratory: denies: cough, dry, shortness of breath, hemoptysis, SOB with excertion, pleuritic pain, sputum, wheezing, other Cardiovascular: denies: chest pain, palpitations, orthopnea, paroxysmal noc. dyspnea, edema, light headedness, other Gastrointestinal: denies: nausea, vomiting, abdominal pain, diarrhea, constipation, melena, hematochezia, other Genitourinary: denies: dysuria, frequency, incontinence, hematuria, retention, other Musculoskeletal: denies: neck pain, shoulder pain, arm pain, back pain, hand pain, leg pain, foot pain, other - Medication Medications: Active Medications Generic Name Dose Route Start Last Admin Trade Name Freq PRN Reason Stop Dose Admin Acetaminophen 650 mg 09/03/19 22:09 09/04/19 03:42 Tylenol PO 650 mg Q4H PRN Administration Headache/Fever or Pain Alogliptin Benzoate 6.25 mg 09/04/19 09:00 09/05/19 08:55 Alogliptin PO Not Given DAILY [facility] Aspirin 325 mg 09/04/19 09:00 09/05/19 08:55 Ecotrin PO Not Given DAILY [facility] Enoxaparin Sodium 40 mg 09/04/19 09:00 09/05/19 08:55 Lovenox SC Not Given 09 [facility] Famotidine 20 mg 09/04/19 09:00 09/05/19 08:48 Pepcid PO 20 mg DAILY [facility] Administration Ferrous Sulfate 325 mg 09/04/19 09:00 09/05/19 08:47 Feosol PO 325 mg DAILY [facility] Administration Lamotrigine 100 mg 09/03/19 21:00 09/05/19 08:47 Lamictal PO 100 mg BID [facility] Administration Latanoprost 1 drop 09/03/19 21:00 09/05/19 08:55 Xalatan 0.005% Ophth Soln L EYE 1 drop BID [facility] Administration Levetiracetam 1,000 mg 09/03/19 21:00 09/05/19 08:48 Keppra PO 1,000 mg BID [facility] Administration Lisinopril 5 mg 09/05/19 09:00 09/05/19 08:47 Zestril PO 5 mg BID [facility] Administration Melatonin 3 mg 09/03/19 22:09 09/04/19 20:30 Melatonin PO 3 mg HSPRN PRN Administration Insomnia Metoprolol Tartrate 50 mg 09/03/19 21:00 09/05/19 08:47 Lopressor PO 50 mg BID [facility] Administration Mometasone Furoate 1 puff 09/04/19 06:30 09/05/19 07:19 Asmanex Hfa 100 Mcg INH Not Given BID-RT [facility] Pantoprazole Sodium 40 mg 09/04/19 09:00 09/05/19 08:47 Protonix PO 40 mg DAILY [facility] Administration Polyethylene Glycol 17 gm 09/04/19 09:00 09/05/19 08:55 Miralax PO Not Given DAILY [facility] Saccharomyces Boulardii 250 mg 09/03/19 21:00 09/05/19 08:48 Florastor PO 250 mg BID [facility] Administration Tamsulosin HCl 0.4 mg 09/04/19 09:00 09/05/19 08:47 Flomax PO 0.4 mg DAILY [facility] Administration - Exam General Appearance: NAD, awake alert Eye: PERRL, anicteric sclera ENT: normocephalic atraumatic, no oropharyngeal lesions Neck: supple, symmetric, no JVD, no thyromegaly Heart: RRR, no murmur, no gallops, no rubs Respiratory: CTAB, no wheezes, no rales, no ronchi Gastrointestinal: soft, non-tender, non-distended, normal bowel sounds Extremities: no cyanosis, no clubbing, 1+ LE edema Skin: normal turgor, no lesions Neurological: no focal deficits Musculoskeletal: normal tone, normal strength Psychiatric: normal affect, normal behavior Hosp A/P (1) NSTEMI (non-ST elevated myocardial infarction) Code(s): I21.4 - NON-ST ELEVATION (NSTEMI) MYOCARDIAL INFARCTION Status: Acute (2) Seizure disorder Code(s): G40.909 - EPILEPSY, UNSP, NOT INTRACTABLE, WITHOUT STATUS EPILEPTICUS Status: Chronic (3) CAD (coronary artery disease) Code(s): I25.10 - ATHSCL HEART DISEASE OF [place] CORONARY ARTERY W/O ANG PCTRS Status: Chronic Qualifiers: (4) DM type 2 (diabetes mellitus, type 2) Status: Chronic (5) Dyslipidemia Code(s): E78.5 - HYPERLIPIDEMIA, UNSPECIFIED Status: Chronic (6) Hypertension Code(s): I10 - ESSENTIAL (PRIMARY) HYPERTENSION Status: Chronic Qualifiers: (7) BPH (benign prostatic hyperplasia) Code(s): N40.0 - BENIGN PROSTATIC HYPERPLASIA WITHOUT LOWER URINRY TRACT SYMP Status: Chronic (8) GERD (gastroesophageal reflux disease) Code(s): K21.9 - GASTRO-ESOPHAGEAL REFLUX DISEASE WITHOUT ESOPHAGITIS Status: Chronic (9) Anemia, normocytic normochromic Code(s): D64.9 - ANEMIA, UNSPECIFIED Status: Chronic (10) Chronic systolic heart failure, ACC/AHA stage C Code(s): I50.22 - CHRONIC SYSTOLIC (CONGESTIVE) HEART FAILURE Status: Chronic - Plan old records reviewed/req, plan discussed w/ family 09/04/19 cardiology consulted echo pending discussed with family may be intpt candidate, will ask upper caser add lipitor continue medical therapy 09/05/19 today family decided for cardiac cath pt is NPO, cardiology to do cath later today will add lasix monitor continue PT
[2019-09-05] MEDS ORDERED: Iopamidol 370 76% 100 ML VIAL ONE (12:15)
[2019-09-05] MEDS ORDERED: Heparin (Artline) 1,000 ML ONE (14:14)
[2019-09-05] MEDS ORDERED: Lidocaine 1% (PF) 30 ML VIAL ONE (14:14)
[2019-09-05] MEDS: Furosemide 40 MG TAB PO SCH (15:27)
[2019-09-05] MEDS ORDERED: Nitroglycerin 0.4 MG TAB (25 Tab Bottle) SL PRN (16:09)
[2019-09-05] MEDS ORDERED: Acetaminophen/Codeine 30-300mg Tablet PO PRN ×2 (16:09)
[2019-09-05] MEDS ORDERED: Sodium Chloride 0.9% 200 ML IV PRN (16:09)
[2019-09-05] MEDS: Melatonin 3 MG TAB PO PRN (21:09)
[2019-09-05] MEDS: Acetaminophen 325 MG TAB PO PRN (21:11)
[2019-09-06] MEDS: Acetaminophen 325 MG TAB PO PRN (04:21)
[2019-09-06] MEDS: Aspirin 325 mg Enteric Coated Tablet PO SCH (08:24)
[2019-09-06] MEDS: Famotidine 20 MG TAB PO SCH (08:25)
[2019-09-06] MEDS: Metoprolol Tartrate 25 MG TAB PO SCH (08:25)
[2019-09-06] MEDS: Tamsulosin HCl 0.4 MG CAP PO SCH (08:25)
[2019-09-06] MEDS: Lisinopril 5 MG TAB PO SCH (08:26)
[2019-09-06] MEDS: Furosemide 40 MG TAB PO SCH ×2 (08:26→13:23)
[2019-09-06] MEDS: Ferrous Sulfate 325 MG TAB PO SCH (08:26)
[2019-09-06] MEDS: levETIRAcetam 500 MG TAB PO SCH (08:29)
[2019-09-06] MEDS: Saccharomyces boulardii 250 MG CAP PO SCH (08:29)
[2019-09-06] MEDS: Alogliptin 6.25 MG TAB PO SCH (08:30)
[2019-09-06] MEDS: lamoTRIgine 100 MG TAB PO SCH (08:31)
[2019-09-06] MEDS: Latanoprost 0.005% Ophth Soln 2.5 ml Bottle L EYE SCH (08:32)
[2019-09-06] MEDS: Polyethylene Glycol 3350 17 GM Packet PO SCH (08:32)
[2019-09-06] MEDS: TRAVOPROST OP SCH ×2 (11:16→11:17)
[2019-09-06] MEDS: Mometasone 100 MCG HFA INHALER INH SCH (11:28)
[2019-09-06 13:39] VITALS: BP 152/67; TEMP 97.9
--- NOTE | 2019-09-06 16:48 | PDOC.CPN ---
- Subjective Date: 09/06/19 Time: 12:30 Interval history: He is doing well. No angina or SOB. Working with PT doing well. - Review of Systems General: denies: fever/chills, weight/appetite/sleep changes, night sweats, fatigue Respiratory: denies: cough, congestion, shortness of breath, exercise intolerance Cardiovascular: denies: chest pain, palpitation, edema, paroxysmal nocturnal dyspnea, orthopnea Gastrointestinal: denies: nausea, vomiting, diarrhea, constipation, abd pain, GI bleeding Musculoskeletal: denies: pain, tenderness, stiffness, swelling, arthritis/ arthralgias Neurological: denies: numbness, syncope, seizure, weakness - Objective Allergies/Adverse Reactions: Allergies Allergy/AdvReac Type Severity Reaction Status Date / Time Sulfa (Sulfonamide Allergy Verified 09/05/19 09:29 Antibiotics) Vital Signs & Weight: Vital Signs Temp Pulse Resp BP BP BP Pulse Ox 09/06/19 12:00 97.9 F 70 17 152/67 H 97 09/06/19 08:26 94 160/69 H 09/06/19 08:00 98.0 F 94 18 160/69 H 95 Weight 200 lb 7 oz - Physical Exam General: appears well HEENT: mucus membranes moist Neck: supple neck Cardiac: regular rate and rhythm Lungs: normal breath sounds Neuro: grossly intact Abdomen: active bowel sounds Extremities: no edema Skin: clear Musculoskeletal: no pain - Labs Result Diagrams: 09/03/19 11:09 09/03/19 11:09 Troponin/CKMB Troponin I 8.210 ng/mL (< 0.028) H* 09/05/19 04:25 - Telemetry Sinus rhythms and dysrhythmias: sinus rhythm - Assessment/Plan Assessment/Plan: 1. NSTEMI 2. Diffuse CAD. 3. Dementia 4. Ischemic CM PLAN; - Continue medical management. - Currently asymptomatic and stable/ - May discharge home. - He will follow up with his Adult Parole Officer Dr. North at [facility] S&
--- NOTE | 2019-09-08 08:42 | DIS ---
DATE OF ADMISSION: 09/04/2019 DATE OF DISCHARGE: 09/06/2019 DISCHARGE DISPOSITION: To assisted living facility at [facility]. PRIMARY DISCHARGE DIAGNOSES: Non-ST elevation myocardial infarction with severe three vessel disease, prior coronary artery bypass graft, seizure disorder, chronic anemia, diabetes mellitus type 2, hypertension, dyslipidemia, benign prostatic hypertrophy, congestive heart failure with diastolic dysfunction with ejection fraction of around 50%. PROCEDURES DONE DURING HOSPITALIZATION: The patient had CT angio chest done which showed no evidence of PE. Echo with 2D Doppler showed EF of 35% to 40%. Cardiac cath done showed an EF of 50% to 55%. It also showed severe three-vessel coronary artery disease. Saphenous vein graft to diagonal is 95% stenosed in proximal area. Saphenous vein graft to LAD was patent with no stenosis. Distal LAD had diffuse plaques and 50% to 75% stenosis. H and H 10 and 32, platelet count 332. Total cholesterol 126, triglycerides 80, LDL 80, HDL 30. Troponin I x3 done peaked up to 0.30. DISCHARGE MEDICATIONS: 1. Aspirin 325 mg twice daily in view of hip surgery for DVT prophylaxis. 2. Lumigan eye drops as before. 3. Ferrous sulfate 325 mg p.o. daily. 4. Flovent Diskus 50 mcg inhaler daily. 5. Lamictal 100 mg twice daily. 6. Keppra 1000 mg twice daily. 7. Melatonin 5 mg p.o. at bedtime p.r.n. 8. Metformin 500 mg p.o. daily. 9. Metoprolol tartrate 50 mg twice daily. 10. Protonix 20 mg daily. 11. MiraLAX 17 g daily. 12. Florastor 250 mg twice daily. 13. Januvia 25 mg daily. 14. Flomax 0.4 mg. 15. Lisinopril 5 mg twice daily. 16. Ranexa 500 mg p.o. twice daily. ALLERGIES: SULFA. DISCHARGE PLAN: The patient to follow up with Dr. Ramez North in 2 weeks. He needs to follow up with Dr. Jurado in 3 days, that is his primary care physician. BRIEF COURSE DURING HOSPITALIZATION: The patient initially was sent to ER on the with complaints of chest pain. He was at [facility] doing rehab in view of recent hip surgery. In view of this history and indeterminate troponin, the patient was admitted to telemetry. He has had consultation with Dr. Andrade for Cardiology. He has had angiogram done which revealed findings as mentioned above with severe three-vessel disease. He is for medical management. Lisinopril and Ranexa were added to his current medication list that he was on from before. Prior to discharge, he is eating and ambulating with assistance. He wants to go back to [facility] for further rehab with history of recent hip surgery. He and his daughter were given complete updates prior to discharge. Please note. I have seen and examined the patient on the day of discharge. Job ID: [id number]
== END 2019-09-06 14:15 | DRG 281 ==
LOC: ERS 10:48 → 2NO 13:07 → OBSVTOIN 09-04 15:23
PROVIDERS: ADMIT Internal Medicine; ATTEND Internal Medicine
PROC: 4A023N7 Measurement of Cardiac Sampling and Pressure, Left Heart, Percutaneous Approach (ICD-10-PCS; principal; 2019-09-05)
PROC: B2151ZZ Fluoroscopy of Left Heart using Low Osmolar Contrast (ICD-10-PCS; 2019-09-05)
PROC: B2111ZZ Fluoroscopy of Multiple Coronary Arteries using Low Osmolar Contrast (ICD-10-PCS; 2019-09-05)
PROC: B2131ZZ Fluoroscopy of Multiple Coronary Artery Bypass Grafts using Low Osmolar Contrast (ICD-10-PCS; 2019-09-05)
DX: I21.4 Non-ST elevation (NSTEMI) myocardial infarction (principal); E87.1 Hypo-osmolality and hyponatremia; I50.22 Chronic systolic (congestive) heart failure; I25.10 Atherosclerotic heart disease of native coronary artery without angina pectoris; D64.9 Anemia, unspecified; I11.0 Hypertensive heart disease with heart failure; E78.5 Hyperlipidemia, unspecified; N40.0 Benign prostatic hyperplasia without lower urinary tract symptoms; H40.9 Unspecified glaucoma; K21.9 Gastro-esophageal reflux disease without esophagitis; Z96.642 Presence of left artificial hip joint; G47.33 Obstructive sleep apnea (adult) (pediatric); E78.00 Pure hypercholesterolemia, unspecified; E11.65 Type 2 diabetes mellitus with hyperglycemia; M48.061 Spinal stenosis, lumbar region without neurogenic claudication; I25.5 Ischemic cardiomyopathy; F32.9 Major depressive disorder, single episode, unspecified; F41.9 Anxiety disorder, unspecified; F03.90 Unspecified dementia, unspecified severity, without behavioral disturbance, psychotic disturbance, mood disturbance, and anxiety; M16.11 Unilateral primary osteoarthritis, right hip; G40.909 Epilepsy, unspecified, not intractable, without status epilepticus; I49.3 Ventricular premature depolarization; Z95.1 Presence of aortocoronary bypass graft; Z99.89 Dependence on other enabling machines and devices; Z95.5 Presence of coronary angioplasty implant and graft; Z88.2 Allergy status to sulfonamides; Z79.82 Long term (current) use of aspirin; Z79.84 Long term (current) use of oral hypoglycemic drugs; Z79.899 Other long term (current) drug therapy; Z90.49 Acquired absence of other specified parts of digestive tract
CPT/HCPCS: 36415; 36416; 71045; 71275; 80053; 80061; 84484; 85025; 93005; 93306; 93459; 93970; 94760; 96365; C1769; J1644; J1650; J2001; J3475; Q9967